=== PATIENT | female | born 1955 | race African-American/Black ===

== ENCOUNTER → 2016-11-25 | Outpatient (CLI) | payer MEDICARE ==
[2016-08-22 08:33] VITALS: BP 131/74
[~2016-11-25] MED LIST: ASPI-482 PO; CALC1TAB PO; DICY10CA53 PO; DOXY100T PO; FLUT9.9S NS; LEVO25TA2 PO; LORA10TA68 PO; LOSA25TA4 PO; METF-93 PO; MULT1TAB6 PO; MUPI15CR TP; NYST15CR2 TP; OMEP40CA5 PO; PRED20TA PO; PSYL0.527 PO; TRIA1CAP PO
--- NOTE | 2016-11-25 12:49 | RAD ---
DATE: 11/25/2016 EXAM: DIGITAL SCREEN BILAT W/CAD HISTORY: Routine screening COMPARISON: 11/20/2015 This study was interpreted with the benefit of Computerized Aided Detection (CAD). FINDINGS: The breasts are predominantly fatty replaced. No new or enlarging breast densities are seen. Minimal benign type calcification is present. No suspicious microcalcifications have developed. IMPRESSION: Stable mammograms without evidence of malignancy. BI-RADS CATEGORY: 2 BENIGN FINDING(S) RECOMMENDED FOLLOW-UP: 12M 12 MONTH FOLLOW-UP PQRS compliance statement: Patient information was entered into a reminder system with a target due date for the next mammogram. Mammography is a sensitive method for finding small breast cancers, but it does not detect them all and is not a substitute for careful clinical examination. A negative mammogram does not negate a clinically suspicious finding and should not result in delay in biopsying a clinically suspicious abnormality. "Our facility is accredited by the [employer] Mammography Program."
== END | disposition home or self-care (01) ==
LOC: MAMMO 10:49
PROVIDERS: ATTEND Internal Medicine
DX: Z12.31 Encounter for screening mammogram for malignant neoplasm of breast (principal)
CPT/HCPCS: G0202; 77067

== ENCOUNTER 2017-04-04 18:46 | Emergency (ER) | payer MEDICARE, MEDICAID ==
[~2017-04-04] VITALS: Ht 154.9 cm; Wt 76.7 kg
[~2017-04-04 18:46] MED LIST changes: -LEVO25TA2 PO; +LEVO25TA55 PO; +METF-153 PO; -METF-93 PO
[2017-04-04 19:15] LABS: BASO # 0.1 x10^3/uL (0.0-0.2); BASO % 1 % (0-3); EOS % 7 % (0-3); HEMATOCRIT 37.7 % (36.0-47.0); HEMOGLOBIN 12.2 g/dL (12.0-15.5); LYMPH # 1.7 x10^3/uL (1.0-4.8); LYMPH % 20 % (24-48); MEAN CORPUSCULAR HEMOGLOBIN 29 pg (25-35); MEAN CORPUSCULAR HGB CONC 32 g/dL (31-37); MEAN CORPUSCULAR VOLUME 88 fL (79-100); MONO % 6 % (0-9); NEUT % 66 % (31-73); PLATELET COUNT 250 x10^3/uL (140-400); RED BLOOD COUNT 4.29 x10^6/uL (3.50-5.40); RED CELL DISTRIBUTION WIDTH 13.1 % (11.5-14.5); WHITE BLOOD COUNT 8.5 x10^3/uL (4.0-11.0)
[2017-04-04 19:17] LABS: BILIRUBIN,URINE NEGATIVE (NEG); GLUCOSE,URINE NEGATIVE (NEG); NITRITE,URINE NEGATIVE (NEG); PROTEIN,URINE NEGATIVE (NEG-TRACE); UROBILINOGEN,URINE 0.2 mg/dL (0.2 mg/dL)
--- NOTE | 2017-04-04 19:21 | PHYS DOC ---
Past Medical History Past Medical History: Diabetes-Type II, Hypertension, Hyperthyroid Past Surgical History: Appendectomy Alcohol Use: None Drug Use: None Adult General Chief Complaint Chief Complaint: FLANK PAIN HPI HPI Patient is a 61 year old female who presents with abdominal pain. Patient reports three-day history of right-sided abdominal pain. Denies fevers or chills , nausea or vomiting, diarrhea or constipation, dysuria or hematuria. She has previous history of chronic abdominal pain for which she is supposed to have some type of GI or surgical procedure that she cannot describe. She states this pain is different and worse than usual. She has history of appendectomy. Her PCP is Dr. Ramesh. Review of Systems Review of Systems Constitutional: Denies fever or chills Eyes: Denies change in visual acuity HENT: Denies nasal congestion or sore throat Respiratory: Denies cough or shortness of breath Cardiovascular: Denies chest pain or edema GI: Reports abdominal pain, denies nausea, vomiting, bloody stools or diarrhea : Denies dysuria or hematuria Musculoskeletal: Denies back pain or joint pain Integument: Denies rash or skin lesions Neurologic: Denies headache, focal weakness or sensory changes Current Medications Current Medications Current Medications Medications (Trade) Dose Ordered Sig/Chidi Start Time Stop Time Status Last Admin Dose Admin Ceftriaxone Sodium 50 ml @ 100 mls/hr 1X ONCE 04/04/17 20:30 04/04/17 20:59 DC 04/04/17 20:17 100 MLS/HR Info (Do NOT chart on this entry -- for MONITORING) 1 each PRN DAILY PRN 04/04/17 20:00 04/06/17 19:59 Iohexol (Omnipaque 300 Mg/ml) 75 ml 1X ONCE 04/04/17 20:00 04/04/17 20:01 DC 04/04/17 20:01 75 ML Ondansetron HCl (Zofran) 4 mg 1X ONCE 04/04/17 19:30 04/04/17 19:31 DC 04/04/17 19:23 4 MG Sodium Chloride 500 ml @ 0 mls/hr 1X ONCE 04/04/17 19:30 04/04/17 19:31 DC 04/04/17 19:24 500 MLS/HR Allergies Allergies Allergies Coded Allergies Type Severity Reaction Last Updated Verified diphenhydramine Allergy Intermediate 08/19/16 Yes Physical Exam Physical Exam Constitutional: Well developed, well nourished, no acute distress, non-toxic appearance. HENT: Normocephalic, atraumatic, bilateral external ears normal, oropharynx moist, nose normal. Eyes: PERRLA, EOMI, conjunctiva normal, no discharge. Neck: supple, no stridor. Cardiovascular: RRR, no murmurs, no edema. Lungs & Thorax: LCTAB, no wheezing, no respiratory distress. Abdomen: soft, generalized right-sided abdominal pain without focal right upper or right lower quadrant tenderness, no rebound or guarding, no masses or pulsatile masses nondistended. Skin: Warm, dry, no erythema, no rash. Back: Very mild right CVA tenderness. Extremities: No tenderness, no edema. Neurologic: Alert and oriented X 3, no focal deficits noted. Psychologic: Affect normal, judgement normal, mood normal. Current Patient Data Vital Signs Vital Signs Date Time Temp Pulse Resp B/P (MAP) Pulse Ox O2 Delivery O2 Flow Rate FiO2 04/04/17 19:00 97.7 77 13 141/87 (105) 99 Room Air 97.7 Lab Values Laboratory Tests Test 04/04/17 17:05 04/04/17 18:55 04/04/17 19:25 Urine Collection Type Unknown Urine Color Yellow Urine Clarity Clear Urine pH 5.0 Urine Specific K[place]ron >=1.030 Urine Protein Negative mg/dL (NEG-TRACE) Urine Glucose (UA) Negative mg/dL (NEG) Urine Ketones (Stick) Negative mg/dL (NEG) Urine Blood Negative (NEG) Urine Nitrite Negative (NEG) Urine Bilirubin Negative (NEG) Urine Urobilinogen Dipstick 0.2 mg/dL (0.2 mg/dL) Urine Leukocyte Esterase Small (NEG) Urine RBC 0 /HPF (0-2) Urine WBC 11-20 /HPF (0-4) Urine Squamous Epithelial Cells Few /LPF Urine Bacteria 0 /HPF (0-FEW) Urine Mucus Mod /LPF White Blood Count 8.5 x10^3/uL (4.0-11.0) Red Blood Count 4.29 x10^6/uL (3.50-5.40) Hemoglobin 12.2 g/dL (12.0-15.5) Hematocrit 37.7 % (36.0-47.0) Mean Corpuscular Volume 88 fL (79-100) Mean Corpuscular Hemoglobin 29 pg (25-35) Mean Corpuscular Hemoglobin Concent 32 g/dL (31-37) Red Cell Distribution Width 13.1 % (11.5-14.5) Platelet Count 250 x10^3/uL (140-400) Neutrophils (%) (Auto) 66 % (31-73) Lymphocytes (%) (Auto) 20 % (24-48) L Monocytes (%) (Auto) 6 % (0-9) Eosinophils (%) (Auto) 7 % (0-3) H Basophils (%) (Auto) 1 % (0-3) Neutrophils # (Auto) 5.6 x10^3uL (1.8-7.7) Lymphocytes # (Auto) 1.7 x10^3/uL (1.0-4.8) Monocytes # (Auto) 0.5 x10^3/uL (0.0-1.1) Eosinophils # (Auto) 0.6 x10^3/uL (0.0-0.7) Basophils # (Auto) 0.1 x10^3/uL (0.0-0.2) Troponin I Quantitative < 0.017 ng/mL (0.000-0.055) Sodium Level 144 mmol/L (136-145) Potassium Level 4.0 mmol/L (3.5-5.1) Chloride Level 106 mmol/L (98-107) Carbon Dioxide Level 30 mmol/L (21-32) Anion Gap 8 (6-14) Blood Urea Nitrogen 17 mg/dL (7-20) Creatinine 0.7 mg/dL (0.6-1.0) Estimated GFR (Cockcroft-Gault) 103.3 BUN/Creatinine Ratio 24 (6-20) H Glucose Level 100 mg/dL (70-99) H Calcium Level 8.6 mg/dL (8.5-10.1) Total Bilirubin 0.1 mg/dL (0.2-1.0) L Aspartate Amino Transferase (AST) 18 U/L (15-37) Alanine Aminotransferase (ALT) 25 U/L (14-59) Alkaline Phosphatase 84 U/L (46-116) Total Protein 6.6 g/dL (6.4-8.2) Albumin 3.3 g/dL (3.4-5.0) L Albumin/Globulin Ratio 1.0 (1.0-1.7) Lipase 52 U/L (73-393) L Laboratory Tests 04/04/17 18:55 Laboratory Tests 04/04/17 19:25 EKG EKG Interpreted by me: Normal sinus rhythm rate 77, no acute ST or T wave changes, normal intervals, no ectopy. [] Radiology/Procedures Radiology/Procedures PROCEDURE: CT ABD PELV W/ IV CONTRST ONLY CT abdomen and pelvis with contrast History: Right-sided abdominal pain for one week Technique: After the administration of intravenous contrast, CT imaging was performed of the abdomen and pelvis. No oral contrast was given as per request. Multiplanar images are reviewed. Exposure: One or more of the following individualized dose reduction techniques were utilized for this examination: 1. Automated exposure control 2. Adjustment of the mA and/or kV according to patient size 3. Use of iterative reconstruction technique. Contrast: 75 cc Omnipaque 300 Comparison: January 27, 2011 Findings: There is some small calcified granulomas near the lung bases. There is no significant abnormality of the liver, spleen, pancreas, adrenal glands. There is now small focus of nonspecific calcification of the distal pancreas. Both kidneys enhance without hydronephrosis. Gallbladder is present without obvious intraluminal abnormality by CT. Accurate evaluation of bowel is limited without oral contrast. There is no significant inflammatory change adjacent to the bowel. There is no evidence of bowel obstruction, free fluid, or free air. Mild hazy density of the left mesenteric and omental fat is stable. Reportedly there has been appendectomy. There is variable retained stool greatest of the right colon and the rectosigmoid colon. The bladder has a normal configuration. There is multilevel lumbar degenerative disc disease and spondylosis as well as facet degenerative change. Impression: 1. No significant acute abnormality is identified. There is retained stool greatest of the rectosigmoid colon and the right colon. Electronically signed by: Lexx Contreras MD (04/04/2017 8:21 PM) [facility] DICTATED and SIGNED BY: LEXX CONTRERAS MD DATE: 04/04/172015[] Course & Med Decision Making Course & Med Decision Making Pertinent Labs and Imaging studies reviewed. (See chart for details) The patient presents with abdominal pain. Vitals stable, no focal pain on exam. Obtained labs and CT. Found to have mild UTI and constipation on CT, otherwise no serious findings. She felt better after treatment here. Gave Rocephin and discharged with prescription for Cipro. Also provided a prescription for MiraLAX. Recommend rest, by mouth hydration, advance diet as tolerated, increase fluid and fiber in diet. Follow-up with primary care physician in 2-3 days. Return to the emergency department for high fever, severe pain, uncontrolled vomiting, any otherwise worsening condition. Discharged home in stable and improved condition. [] Dragon Disclaimer Dragon Disclaimer This electronic medical record was generated, in whole or in part, using a voice recognition dictation system. Departure Departure Impression: Primary Impression: Abdominal pain Additional Impressions: Urinary tract infection Constipation Disposition: HOME, SELF-CARE Condition: STABLE Referrals: ADIN RAMESH MD (PCP) Patient Instructions: Constipation, Adult, Vyud-[id number], Urinary Tract Infection, [id number] Additional Instructions: You were seen in the emergency department today for abdominal pain. No serious cause of symptoms was identified. You have a bladder infection and constipation on the CT scan. Please take MiraLAX to promote passage of stools. Take Cipro for urinary tract infection. Follow-up with primary care physician in 2-3 days. Return to the emergency department for high fever, severe pain, uncontrolled vomiting, any otherwise worsening condition. Scripts Polyethylene Glycol 3350 (MIRALAX) 17 Gm Powd.pack 1 PACKET PO DAILY Y for CONSTIPATION, #2 PACKET Prov: JOHAN HENDRIX MD 04/04/17 Ciprofloxacin Hcl (CIPRO) 500 Mg Tablet 1 TAB PO BID, #10 TAB Prov: JOHAN HENDRIX MD 04/04/17 Problem Qualifiers JOHAN HENDRIX MD Apr 04, 2017 19:21
[2017-04-04 19:26] LABS: BACTERIA,URINE 0 /HPF (0-FEW); RBC,URINE 0 /HPF (0-2); SQUAMOUS EPITHELIAL CELL,UR FEW /LPF
[2017-04-04] MEDS ORDERED: IV NORMAL SALINE 500ML BAG 500 ML IV ONE (19:30)
[2017-04-04] MEDS ORDERED: ONDANSETRON PF 4 MG/2 ML VIAL. IV ONE (19:30)
[2017-04-04] MEDS ORDERED: IOHEXOL 300 MG/ML 75 ML VIAL IV ONE ×2 (19:45→20:00)
[2017-04-04 19:47] LABS: CALCIUM 8.6 mg/dL (8.5-10.1); CREATININE 0.7 mg/dL (0.6-1.0); GFR 103.3
[2017-04-04 19:53] LABS: ALBUMIN 3.3 g/dL (3.4-5.0); TOTAL BILIRUBIN 0.1 mg/dL (0.2-1.0); TOTAL PROTEIN 6.6 g/dL (6.4-8.2)
[2017-04-04] MEDS ORDERED: CONTRAST GIVEN MC PRN (20:00)
--- NOTE | 2017-04-04 20:24 | RAD ---
CT abdomen and pelvis with contrast History: Right-sided abdominal pain for one week Technique: After the administration of intravenous contrast, CT imaging was performed of the abdomen and pelvis. No oral contrast was given as per request. Multiplanar images are reviewed. Exposure: One or more of the following individualized dose reduction techniques were utilized for this examination: 1. Automated exposure control 2. Adjustment of the mA and/or kV according to patient size 3. Use of iterative reconstruction technique. Contrast: 75 cc Omnipaque 300 Comparison: January 27, 2011 Findings: There is some small calcified granulomas near the lung bases. There is no significant abnormality of the liver, spleen, pancreas, adrenal glands. There is now small focus of nonspecific calcification of the distal pancreas. Both kidneys enhance without hydronephrosis. Gallbladder is present without obvious intraluminal abnormality by CT. Accurate evaluation of bowel is limited without oral contrast. There is no significant inflammatory change adjacent to the bowel. There is no evidence of bowel obstruction, free fluid, or free air. Mild hazy density of the left mesenteric and omental fat is stable. Reportedly there has been appendectomy. There is variable retained stool greatest of the right colon and the rectosigmoid colon. The bladder has a normal configuration. There is multilevel lumbar degenerative disc disease and spondylosis as well as facet degenerative change. Impression: 1. No significant acute abnormality is identified. There is retained stool greatest of the rectosigmoid colon and the right colon. Electronically signed by: Miguel Sutton MD (04/04/2017 8:21 PM) [facility]
[2017-04-04] MEDS ORDERED: POLY17PO29 PO (21:15)
[2017-04-04] MEDS ORDERED: CIPR500T94 PO (21:15)
[2017-04-04 21:22] VITALS: BP 120/71
--- NOTE | 2017-04-05 08:48 | EKG ---
[facility] [address] [place] [address] Test Date: 2017-04-04 Test Time: 19:16:19 Pat Name: SHANON SANCHEZ Department: Room: Gender: F [employer] Super[employer]: : 1955 Requested By: JOHAN HENDRIX Order Number: [id number] Reading MD: Reinaldo Santiago Measurements Intervals [place] Rate: 77 P: 33 CT: 176 QRS: -2 QRSD: 80 T: 32 QT: 380 QTc: 432 Interpretive Statements SINUS RHYTHM LEFTWARD AXIS LOW LIMB LEAD VOLTAGE NO SPECIFIC ECG ABNORMALITIES RI6.01 Compared to ECG 08/19/2016 21:06:26 Left-axis deviation now present Electronically Signed On 04-05-2017 11:21:19 CDT by Reinaldo Santiago
[2017-04-10] MEDS ORDERED: MOME13HF IH (14:35)
[2017-04-10] MEDS ORDERED: CETI10TA22 PO (14:37)
[2017-04-10] MEDS ORDERED: TRIA1CAP PO (14:37)
[2017-04-10] MEDS ORDERED: VENTOLIN HFA18 GM INH (14:37)
[2017-04-10] MEDS ORDERED: METF-153 PO (14:37)
== END 2017-04-04 21:28 | disposition home or self-care (01) ==
LOC: ER 18:46
DX: N39.0 Urinary tract infection, site not specified (principal); K59.00 Constipation, unspecified; G89.29 Other chronic pain; I10 Essential (primary) hypertension; E11.9 Type 2 diabetes mellitus without complications; E05.90 Thyrotoxicosis, unspecified without thyrotoxic crisis or storm; Z90.49 Acquired absence of other specified parts of digestive tract; Z88.8 Allergy status to other drugs, medicaments and biological substances
CPT/HCPCS: 36415; 74177; 80053; 81001; 83690; 84484; 85027; 87086; 93005; 96361; 96365; 96375; 99285; J0690; J2405; J7040; Q9967

== ENCOUNTER → 2017-04-11 | Day surgery (SDC) | payer MEDICARE, MEDICAID ==
[~2017-04-11] MED LIST changes: +CETI10TA22 PO; +CIPR500T94 PO; +HYDROmorphone 2 MG/ML VIAL IV PRN; +IV RINGERS,LACTATED 1000ML 1,000 ML IV SCH; +LIDOCAINE 1% 1 ML SYRINGE. ID PRN; +MOME13HF IH; +MORPHINE SULFATE 2 MG/ML DISP.SYRIN. IV PRN; +ONDANSETRON PF 4 MG/2 ML VIAL. IV PRN; +POLY17PO29 PO; +PROCHLORPERAZINE 10 MG/2 ML VIAL. IV PRN; +PROPOFOL 20 ML IV ONE; +PROPOFOL 40 ML IV ONE; +VENTOLIN HFA18 GM INH; +fentaNYL PF VIAL 100 MCG/2 ML VIAL IV PRN
--- NOTE | 2017-04-11 09:16 | PDOC1 ---
HISTORY & PHYSICAL H&P La Higgins [id number] 1955 02/08/2017 01:50 PM 09/04 MAZAMA Docitt [facility], [facility] OUR PATIENTS COME FIRST [address] [place] [address] Ph. [phone] Patient: La Higgins Date of : 1955 Date: 02/08/2017 1:50 PM Visit Type: Consult This 61 year old female presents for Constipation, h/o colon polyp and Abdominal pain. History of Present Illness: 1. Constipation The patient describes it as difficulty passing, hard, ribbon like and scybalous. It occurs constantly. Denies aggravating symptoms. Denies relieving factors. Pertinent negatives include abdominal pain, black tarry stools, bloating, nausea, vomiting and weight loss. 2. h/o colon polyp Risk Factors: h/o colon polyp. Pertinent negatives include abdominal pain, nausea, vomiting and weight loss. Additional information: Last colonoscopy . H/O colon polyp. 3. Abdominal pain Location is epigastric, midline. The patient describes it as aching, bloating and sharp. Context: no pattern noted. Denies aggravating factors. Denies relieving factors. INTAKE COMMENTS: Intake Comments: Nurse Note: the pt is here today with complaints of abd pain, the pt states that the pain is all over her abd and she is having some issues with constipation. PROBLEM LIST: Problem Description Onset Date Acute bacterial sinusitis 10/09/2015 Controlled diabetes mellitus 11/10/2015 Type 2 DM uncontrolled 03/17/2014 Medical examinations/reports status 06/12/2009 DM w/o complication type II 12/22/2014 Gastroesophageal reflux disease 06/12/2009 Chronic paranoid schizophrenia 06/12/2009 Benign essential hypertension 12/16/2010 Hyperlipidemia 12/16/2010 Acquired hypothyroidism 12/16/2010 Anxiety state 12/16/2010 Sleep apnea 03/15/2012 Comprehensive diabetic foot examination, type 2 DM, encounter for 06/06/2016 PAST MEDICAL/SURGICAL HISTORY (Detailed) Disease/disorder Onset Date Management Date Comments asthma Arthrocentesis of the left knee joint borderline diabetes 2009 Depression Diabetes Extreme degree of tortuosity and extrinsic adhesions of colon 08/09/2012 Hyperlipidemia Limited diverticula 08/09/2012 colonoscopy 08/09/2012 schizophrenia medications DIAGNOSTICS HISTORY: Test Ordered Interpretation Result completed CT ABDOMEN W/O & W/DYE 01/27/2011 Abnormal Imp: No acute intra-abdominal or pelvic process detected. 01/27/2011 CT PELVIS W/O & W/DYE 01/27/2011 Normal Imp: No acute intra-abdominal or pelvic process detected. 01/27/2011 COLONOSCOPY AND BIOPSY 07/31/2012 Imp: Limited diverticula. Extreme degree of tortuosity and extrinsic lesions. 08/09/2012 Test Ordered Ordering Comments Modifier CT ABDOMEN W/O & W/DYE 01/27/[address] PELVIS W/O & W/DYE 01/27/2011 Gastroenterology COLONOSCOPY AND BIOPSY 07/31/2012 Medications (Active): Started Medication Directions Instruction Stopped 09/16/2016 Aspir-81 81 mg tablet,delayed release take 1 tablet (81MG) by oral route every day 09/11/2015 Bactroban 2 % topical ointment apply by topical route 3 times every day a small amount to the affected area 06/06/2016 Bentyl 10 mg capsule take 1 capsule (10MG) by oral route 3 times every day 01/06/2017 Caltrate with Vitamin D3 600 mg (1,500 mg)-800 unit tablet 1 po bid 01/06/2017 Centrum Complete 18 mg-400 mcg tablet take 1 tablet by oral route every day with food 09/16/2016 Claritin 10 mg tablet take 1 tablet by oral route every day 10/12/2016 Dulera 200 mcg-5 mcg/actuation HFA aerosol inhaler inhale 2 puff by inhalation route 2 times every day in the morning and evening samples given 01/11/2017 Dyazide 37.5 mg-25 mg capsule take 1 capsule by oral route every day 01/06/2017 Fiber (psyllium husk) 0.52 gram capsule Take one capsule daily. 01/06/2017 Flonase 50 mcg/actuation nasal spray,suspension spray 1 spray by intranasal route 2 times every day in each nostril 02/02/2017 Fortamet 500 mg tablet,extended release take 1 tablet (500MG) by oral route every day with the evening meal 01/11/2017 losartan 25 mg tablet take 1 tablet (25MG) by oral route every day 02/09/2016 nystatin-triamcinolone 100,000 unit/g-0.1 % topical cream apply by topical route 2 times every day to the affected area(s) 08/23/2016 omeprazole 40 mg capsule,delayed release take 1 capsule (40MG) by oral route every day before a meal 02/02/2017 Synthroid 25 mcg tablet take 1 tablet (25MCG) by oral route every day 08/23/2016 Ventolin HFA 90 mcg/actuation aerosol inhaler inhale 2 puff by inhalation route every 4 hours as needed 01/06/2017 Zyrtec-D 5 mg-120 mg tablet,extended release take 1 tablet by oral route every day Allergies: Ingredient Reaction Medication Name Comment DIPHENHYDRAMINE HCL Benadryl REVIEW OF SYSTEMS System Neg/Pos Details Constitutional Negative Chills, fever and malaise. ENMT Negative Sore throat. Eyes Negative Double vision. Respiratory Negative Dyspnea and wheezing. Cardio Negative Chest pain and irregular heartbeat/palpitations. GI Positive See HPI. GI Negative See HPI. Negative Dysuria and hematuria. Endocrine Negative Cold intolerance and heat intolerance. Psych Negative Anxiety. Integumentary Negative Hives and rash. MS Negative Joint pain. Ramon/Lymph Negative Easy bleeding and easy bruising. Allergic/Immuno Negative Animals at home and food allergies. VITAL SIGNS Time BP mm/Hg Pulse /min Resp /min Temp F Ht ft Ht in Ht cm Wt lb Wt kg BMI kg/ m2 BSA m2 O2 Sat% 2:07 PM 128/78 88 98.1 5.0 0.00 152.40 164.00 74.389 32.03 98 Time Measured [facility] 2:07 [facility] PH[facility]AM: Exam Findings Details Constitutional Normal Well developed. Eyes Normal Conjunctiva - Right: Normal, Left: Normal. Sclera - Right: Normal, Left: Normal. Nasopharynx Normal Lips/teeth/gums - Normal. Neck Exam Normal Inspection - Normal. Thyroid gland - Normal. Respiratory Normal Inspection - Normal. Auscultation - Normal. Cardiovascular Normal Regular rate and rhythm. No murmurs, gallops, or rubs. Vascular Normal Pulses - Carotids: Normal, Femoral: Normal, Dorsalis pedis: Normal. Abdomen Normal Inspection - Normal. Anterior palpation - No guarding. No abdominal tenderness. No hepatic enlargement. No splenic enlargement. No hernia. No Ascites. Skin Normal Inspection - Normal. Extremity Normal No edema. Psychiatric Normal Oriented to time, place, person, and situation. Appropriate mood and effect. Assessment/Plan # Detail Type Description 1. Assessment Pain of upper abdomen (R10.10). Patient Plan schedule EGD at Plan Orders Further diagnostic evaluations ordered today include(s) EGD to be performed today. 2. Assessment History of colon polyps (Z86.010). Patient Plan schedule colonoscopy at Plan Orders Further diagnostic evaluations ordered today include(s) Colonoscopy to be performed today. She is to schedule a follow-up visit with Alistair Cintron MD upon completion of work-up Electronically signed by: Alistair Cintron MD 02/08/2017 04:15 PM Document generated by: Alistair Cintron 02/08/2017 04:15 PM Bryan Galloway MD, Family Practice; Sami Pal MD Internal Medicine; Aaron Reyes MD, Internal Medicine; Henry Cintron MD Internal Medicine; Alistair Cintron MD, Gastroenterology; Saran Lu MD, Rheumatology, S. Solomon Luevano, Physical Medicine/Rehab JSteve Dobson APRN ------ 04/11/17 patient seen and examined. No change in H&P. ALISTAIR CINTRON MD Apr 11, 2017 09:16
[2017-04-11 10:26] VITALS: BP 132/79
--- NOTE | 2017-04-12 12:42 | PATHOLOGY ---
PATHOLOGY REPORT * * * * * * * * FINAL DIAGNOSIS: Colon biopsies, ascending colon polyp: - Tubular adenoma. COMMENT: There is no high grade dysplasia or evidence of malignancy. (JPM:pit; 04/12/2017) REPORT ELECTRONICALLY SIGNED BY: Grabiel Reaves M.D. DATE/TIME: 04/12/2017 12:42 * * * * * * * * GROSS PATHOLOGY: Received in formalin labeled "Shanon Higgins, ascending colon polyp biopsy," are two segments of tabares soft tissue measuring 0.2 and 0.3 cm in maximum dimension. The specimen is submitted entirely in cassette A1. (JPM; 04/11/17) INITIAL CPT CODE(S): A; 80824 Professional services performed by [facility] [place] [address] Technical services performed by [facility] at [address] [place] [address], [facility] [address] [address]. SPECIMEN(S) RECEIVED: A.Ascending colon polyp biopsy CLINICAL HISTORY: History of polyp, abdominal pain PATIENT: SHANON HIGGINS Ania /AGE: 1 1955 (Age: 61) PATIENT #: [id number] ALT CASE #: SPECIMEN COLLECTION DATE: 04/11/2017 SPECIMEN RECEIVED DATE: 04/11/2017 [facility] - [address] [place] [address] - PHONE: [phone] * * * END OF REPORT * * *
== END | disposition home or self-care (01) ==
LOC: SURG 08:03
PROVIDERS: ATTEND Internal Medicine Gastroenterology
DX: Z87.19 Personal history of other diseases of the digestive system (principal); D12.2 Benign neoplasm of ascending colon; E78.00 Pure hypercholesterolemia, unspecified; I10 Essential (primary) hypertension; J45.909 Unspecified asthma, uncomplicated; M19.90 Unspecified osteoarthritis, unspecified site; E03.9 Hypothyroidism, unspecified; F41.9 Anxiety disorder, unspecified; F32.9 Major depressive disorder, single episode, unspecified; Z88.8 Allergy status to other drugs, medicaments and biological substances; Z86.39 Personal history of other endocrine, nutritional and metabolic disease
CPT/HCPCS: 43235; 45380; J2704

== ENCOUNTER 2017-05-19 12:42 | Emergency (ER) | payer MEDICARE, MEDICAID ==
[~2017-05-19] VITALS: Ht 154.9 cm; Wt 72.1 kg
[~2017-05-19 12:42] MED LIST changes: -HYDROmorphone 2 MG/ML VIAL IV PRN; -IV RINGERS,LACTATED 1000ML 1,000 ML IV SCH; -LIDOCAINE 1% 1 ML SYRINGE. ID PRN; -MORPHINE SULFATE 2 MG/ML DISP.SYRIN. IV PRN; -ONDANSETRON PF 4 MG/2 ML VIAL. IV PRN; -PROCHLORPERAZINE 10 MG/2 ML VIAL. IV PRN; -PROPOFOL 20 ML IV ONE; -PROPOFOL 40 ML IV ONE; -fentaNYL PF VIAL 100 MCG/2 ML VIAL IV PRN
--- NOTE | 2017-05-19 13:07 | PHYS DOC ---
Past Medical History Past Medical History: Diabetes-Type II, Hypertension, Hyperthyroid Past Surgical History: Appendectomy Alcohol Use: None Drug Use: None Adult General Chief Complaint Chief Complaint: PSYCH EVALUATION HPI HPI Patient is a 61 year old -Maltese female who presents with needing a place to stay. According to her manager rn case she got into a verbal argument with another tenant at their senior care/facility she staying in and the [employer] officers were called and they asked her to leave the premises and not return. Patient denies any physical confrontation she denies nausea vomiting abdominal pain or any other medical conditions at this time. The marketing community liaison is requesting to see if she needs any other medications and find her new place to stay. Patient denies any dysuria, fevers chills nausea or vomiting. Review of Systems Review of Systems Constitutional: Denies fever or chills [] Eyes: Denies change in visual acuity, redness, or eye pain [] HENT: Denies nasal congestion or sore throat [] Respiratory: Denies cough or shortness of breath [] Cardiovascular: No additional information not addressed in HPI [] GI: Denies abdominal pain, nausea, vomiting, bloody stools or diarrhea [] : Denies dysuria or hematuria [] Musculoskeletal: Denies back pain or joint pain [] Integument: Denies rash or skin lesions [] Neurologic: Denies headache, focal weakness or sensory changes [] Endocrine: Denies polyuria or polydipsia [] Allergies Allergies Allergies Coded Allergies Type Severity Reaction Last Updated Verified diphenhydramine Allergy Intermediate 04/11/17 Yes Physical Exam Physical Exam Constitutional: Well developed, well nourished, no acute distress, non-toxic appearance. [] HENT: Normocephalic, atraumatic, bilateral external ears normal, oropharynx moist, no oral exudates, nose normal. [] Eyes: PERRLA, EOMI, conjunctiva normal, no discharge. [] Neck: Normal range of motion, no tenderness, supple, no stridor. [] Cardiovascular:Heart rate regular rhythm, no murmur [] Lungs & Thorax: Bilateral breath sounds clear to auscultation [] Abdomen: Bowel sounds normal, soft, no tenderness, no masses, no pulsatile masses. [] Skin: Warm, dry, no erythema, no rash. [] Back: No tenderness, no CVA tenderness. [] Extremities: No tenderness, no cyanosis, no clubbing, ROM intact, no edema. [] Neurologic: Alert and oriented X 3, normal motor function, normal sensory function, no focal deficits noted. [] Psychologic: Affect normal, judgement normal, mood normal. [] Current Patient Data Vital Signs Vital Signs Date Time Temp Pulse Resp B/P (MAP) Pulse Ox O2 Delivery O2 Flow Rate FiO2 05/19/17 15:03 98 19 112/76 (88) 99 Room Air 05/19/17 13:09 98.2 98.2 Lab Values Laboratory Tests Test 05/19/17 12:55 05/19/17 14:05 Urine Collection Type Unknown Urine Color Yellow Urine Clarity Clear Urine pH 7.0 Urine Specific [place] 1.015 Urine Protein Negative mg/dL (NEG-TRACE) Urine Glucose (UA) Negative mg/dL (NEG) Urine Ketones (Stick) Negative mg/dL (NEG) Urine Blood Negative (NEG) Urine Nitrite Negative (NEG) Urine Bilirubin Negative (NEG) Urine Urobilinogen Dipstick 0.2 mg/dL (0.2 mg/dL) Urine Leukocyte Esterase Small (NEG) Urine RBC 0 /HPF (0-2) Urine WBC 11-20 /HPF (0-4) Urine Squamous Epithelial Cells Few /LPF Urine Bacteria 0 /HPF (0-FEW) Urine Hyaline Casts Few /HPF Urine Mucus Slight /LPF White Blood Count 10.2 x10^3/uL (4.0-11.0) Red Blood Count 4.76 x10^6/uL (3.50-5.40) Hemoglobin 13.6 g/dL (12.0-15.5) Hematocrit 41.3 % (36.0-47.0) Mean Corpuscular Volume 87 fL (79-100) Mean Corpuscular Hemoglobin 29 pg (25-35) Mean Corpuscular Hemoglobin Concent 33 g/dL (31-37) Red Cell Distribution Width 12.9 % (11.5-14.5) Platelet Count 348 x10^3/uL (140-400) Neutrophils (%) (Auto) 72 % (31-73) Lymphocytes (%) (Auto) 16 % (24-48) L Monocytes (%) (Auto) 6 % (0-9) Eosinophils (%) (Auto) 5 % (0-3) H Basophils (%) (Auto) 1 % (0-3) Neutrophils # (Auto) 7.4 x10^3uL (1.8-7.7) Lymphocytes # (Auto) 1.6 x10^3/uL (1.0-4.8) Monocytes # (Auto) 0.6 x10^3/uL (0.0-1.1) Eosinophils # (Auto) 0.5 x10^3/uL (0.0-0.7) Basophils # (Auto) 0.1 x10^3/uL (0.0-0.2) Sodium Level 136 mmol/L (136-145) Potassium Level 4.2 mmol/L (3.5-5.1) Chloride Level 102 mmol/L (98-107) Carbon Dioxide Level 28 mmol/L (21-32) Anion Gap 6 (6-14) Blood Urea Nitrogen 27 mg/dL (7-20) H Creatinine 1.0 mg/dL (0.6-1.0) Estimated GFR (Cockcroft-Gault) 68.4 Glucose Level 122 mg/dL (70-99) H Calcium Level 9.9 mg/dL (8.5-10.1) Laboratory Tests 05/19/17 14:05 Laboratory Tests 05/19/17 14:05 EKG EKG [] Radiology/Procedures Radiology/Procedures [] Impressions: Homeless Course & Med Decision Making Course & Med Decision Making Pertinent Labs and Imaging studies reviewed. (See chart for details) Patient's vitals are within normal limits and she is resting in bed and her heart rate was 96. She denies any dysuria or other symptoms. She's been offered [place] home but refuses to go there. Her caseworkers at bedside trying to make other arrangements. Patient's being checked out to Dr. Nelson for final disposition. Dragon Disclaimer Dragon Disclaimer This electronic medical record was generated, in whole or in part, using a voice recognition dictation system. Departure Departure Referrals: ADIN RAMESH MD (PCP) EDMUND BARRAZA MD May 19, 2017 13:07
[2017-05-19 14:08] LABS: BILIRUBIN,URINE NEGATIVE (NEG); GLUCOSE,URINE NEGATIVE (NEG); NITRITE,URINE NEGATIVE (NEG); PROTEIN,URINE NEGATIVE (NEG-TRACE); UROBILINOGEN,URINE 0.2 mg/dL (0.2 mg/dL)
[2017-05-19 14:17] LABS: BASO # 0.1 x10^3/uL (0.0-0.2); BASO % 1 % (0-3); EOS % 5 % (0-3); HEMATOCRIT 41.3 % (36.0-47.0); HEMOGLOBIN 13.6 g/dL (12.0-15.5); LYMPH # 1.6 x10^3/uL (1.0-4.8); LYMPH % 16 % (24-48); MEAN CORPUSCULAR HEMOGLOBIN 29 pg (25-35); MEAN CORPUSCULAR HGB CONC 33 g/dL (31-37); MEAN CORPUSCULAR VOLUME 87 fL (79-100); MONO % 6 % (0-9); NEUT % 72 % (31-73); PLATELET COUNT 348 x10^3/uL (140-400); RED BLOOD COUNT 4.76 x10^6/uL (3.50-5.40); RED CELL DISTRIBUTION WIDTH 12.9 % (11.5-14.5); WHITE BLOOD COUNT 10.2 x10^3/uL (4.0-11.0)
[2017-05-19 14:24] LABS: BACTERIA,URINE 0 /HPF (0-FEW); RBC,URINE 0 /HPF (0-2); SQUAMOUS EPITHELIAL CELL,UR FEW /LPF
[2017-05-19 14:41] LABS: CALCIUM 9.9 mg/dL (8.5-10.1); GFR 68.4; POTASSIUM 4.2 mmol/L (3.5-5.1)
[2017-05-19 15:03] VITALS: BP 112/76
== END 2017-05-19 15:44 | disposition home or self-care (01) ==
LOC: ER 12:42
DX: Z59.0 Homelessness (principal); I10 Essential (primary) hypertension; E11.9 Type 2 diabetes mellitus without complications; E05.90 Thyrotoxicosis, unspecified without thyrotoxic crisis or storm; Z88.8 Allergy status to other drugs, medicaments and biological substances
CPT/HCPCS: 36415; 80048; 81001; 85025; 87086; 99284

== ENCOUNTER → 2017-12-05 | Outpatient (CLI) | payer MEDICARE, MEDICAID | END | disposition home or self-care (01) | LOC: MAMMO 13:41 | DX: Z12.31 Encounter for screening mammogram for malignant neoplasm of breast (principal) | CPT/HCPCS: 77067 ==

== ENCOUNTER 2018-11-27 17:56 | Emergency (ER) | payer MEDICARE, MEDICAID ==
[~2018-11-27] VITALS: Ht 162.6 cm; Wt 72.6 kg
[~2018-11-27 17:56] MED LIST changes: -LOSA25TA4 PO; +LOSA25TA54 PO
[2018-11-27] MEDS ORDERED: methylPREDNISolone SOD SUCC PF 125 MG/2 ML VIAL. IV ONE (18:45)
[2018-11-27] MEDS ORDERED: IPRATRPIUM/ALBUTEROL 0.5/2.5MG 3 ML NEBU. NEB ONE (18:45)
[2018-11-27 19:24] LABS: BASO # 0.1 x10^3/uL (0.0-0.2); BASO % 1 % (0-3); EOS # 1.1 x10^3/uL (0.0-0.7); EOS % 14 % (0-3); HEMATOCRIT 32.8 % (36.0-47.0); HEMOGLOBIN 10.8 g/dL (12.0-15.5); LYMPH # 1.7 x10^3/uL (1.0-4.8); LYMPH % 22 % (24-48); MEAN CORPUSCULAR HEMOGLOBIN 29 pg (25-35); MEAN CORPUSCULAR HGB CONC 33 g/dL (31-37); MEAN CORPUSCULAR VOLUME 89 fL (79-100); MONO # 0.4 x10^3/uL (0.0-1.1); MONO % 6 % (0-9); NEUT # 4.5 x10^3uL (1.8-7.7); NEUT % 58 % (31-73); PLATELET COUNT 204 x10^3/uL (140-400); RED CELL DISTRIBUTION WIDTH 13.4 % (11.5-14.5); WHITE BLOOD COUNT 7.7 x10^3/uL (4.0-11.0)
--- NOTE | 2018-11-27 19:29 | PHYS DOC ---
Past Medical History Past Medical History: Asthma, Diabetes-Type II, Hypertension, Hyperthyroid, Hypothyroid, IBS, Other Additional Past Medical Histor: MENTAL HEALTH ISSUES (MAC LA APRN) Past Surgical History: Appendectomy (MAC LA APRN) Alcohol Use: None Drug Use: None (MAC LA APRN) Adult General Chief Complaint Chief Complaint: ASTHMA HPI HPI Patient is a 63 year old female with history of asthma, hypertension, hypothyroidism, who presents to the ED today complaining of wheezing that began this afternoon. Patient states she was not given a breathing treatment in the prison but the prison reports patient refused. Patient denies any fever. She states she was admitted last month for similar complaints at a different facility. (MAC LA APRN) Review of Systems Review of Systems Constitutional: Denies fever or chills [] Eyes: Denies change in visual acuity, redness, or eye pain [] HENT: Denies nasal congestion or sore throat [] Respiratory: Reports wheezing. Denies cough or shortness of breath [] Cardiovascular: No additional information not addressed in HPI [] GI: Denies abdominal pain, nausea, vomiting, bloody stools or diarrhea [] : Denies dysuria or hematuria [] Musculoskeletal: Denies back pain or joint pain [] Integument: Denies rash or skin lesions [] Neurologic: Denies headache, focal weakness or sensory changes [] All other systems were reviewed and found to be within normal limits, except as documented in this note. (MAC LA APRN) Current Medications Current Medications Current Medications Medications (Trade) Dose Ordered Sig/Chidi Start Time Stop Time Status Last Admin Dose Admin Albuterol/ Ipratropium (Duoneb) 3 ml 1X ONCE 11/27/18 18:45 11/27/18 18:46 DC 11/27/18 18:44 3 ML Methylprednisolone Sodium Succinate (SOLU-Medrol 125MG VIAL) 125 mg 1X ONCE 11/27/18 18:45 11/27/18 18:46 DC 11/27/18 19:39 125 MG (MESERET ARTHUR DO) Allergies Allergies Allergies Coded Allergies Type Severity Reaction Last Updated Verified diphenhydramine Allergy Intermediate 04/11/17 Yes (MESERET ARTHUR DO) Physical Exam Physical Exam Constitutional: Well developed, well nourished, no acute distress, non-toxic appearance. [] HENT: Normocephalic, atraumatic, bilateral external ears normal, oropharynx moist, no oral exudates, nose normal. [] Eyes: PERRLA, EOMI, conjunctiva normal, no discharge. [] Neck: Normal range of motion, no tenderness, supple, no stridor. [] Cardiovascular:Heart rate regular rhythm, no murmur [] Lungs & Thorax: Diffuse wheezing throughout the lung bases. Abdomen: Bowel sounds normal, soft, no tenderness, no masses, no pulsatile masses. [] Skin: Warm, dry, no erythema, no rash. [] Back: No tenderness, no CVA tenderness. [] Extremities: No tenderness, no cyanosis, no clubbing, ROM intact, no edema. [] Neurologic: Alert and oriented X 3, normal motor function, normal sensory function, no focal deficits noted. [] Psychologic: Affect normal, judgement normal, mood normal. [] (MAC LA APRN) Current Patient Data Vital Signs Vital Signs Date Time Temp Pulse Resp B/P (MAP) Pulse Ox O2 Delivery O2 Flow Rate FiO2 11/27/18 20:30 80 145/90 (108) 98 Room Air 11/27/18 19:40 19 11/27/18 18:13 97.8 97.8 (MESERET ARTHUR DO) Lab Values Laboratory Tests Test 11/27/18 19:05 11/27/18 19:15 Urine Collection Type Unknown Urine Color Yellow Urine Clarity Clear Urine pH 5.5 Urine Specific [place] 1.020 Urine Protein Negative mg/dL (NEG-TRACE) Urine Glucose (UA) Negative mg/dL (NEG) Urine Ketones (Stick) Trace mg/dL (NEG) Urine Blood Negative (NEG) Urine Nitrite Negative (NEG) Urine Bilirubin Negative (NEG) Urine Urobilinogen Dipstick 0.2 mg/dL (0.2 mg/dL) Urine Leukocyte Esterase Moderate (NEG) Urine RBC 0 /HPF (0-2) Urine WBC 11-20 /HPF (0-4) Urine Squamous Epithelial Cells Few /LPF Urine Bacteria Few /HPF (0-FEW) White Blood Count 7.7 x10^3/uL (4.0-11.0) Red Blood Count 3.70 x10^6/uL (3.50-5.40) Hemoglobin 10.8 g/dL (12.0-15.5) L Hematocrit 32.8 % (36.0-47.0) L Mean Corpuscular Volume 89 fL (79-100) Mean Corpuscular Hemoglobin 29 pg (25-35) Mean Corpuscular Hemoglobin Concent 33 g/dL (31-37) Red Cell Distribution Width 13.4 % (11.5-14.5) Platelet Count 204 x10^3/uL (140-400) Neutrophils (%) (Auto) 58 % (31-73) Lymphocytes (%) (Auto) 22 % (24-48) L Monocytes (%) (Auto) 6 % (0-9) Eosinophils (%) (Auto) 14 % (0-3) H Basophils (%) (Auto) 1 % (0-3) Neutrophils # (Auto) 4.5 x10^3uL (1.8-7.7) Lymphocytes # (Auto) 1.7 x10^3/uL (1.0-4.8) Monocytes # (Auto) 0.4 x10^3/uL (0.0-1.1) Eosinophils # (Auto) 1.1 x10^3/uL (0.0-0.7) H Basophils # (Auto) 0.1 x10^3/uL (0.0-0.2) Segmented Neutrophils % 57 % (35-66) Lymphocytes % 28 % (24-48) Monocytes % 3 % (0-10) Eosinophils % 12 % (0-5) H Platelet Estimate Adequate (ADEQUATE) Sodium Level 144 mmol/L (136-145) Potassium Level 3.8 mmol/L (3.5-5.1) Chloride Level 107 mmol/L (98-107) Carbon Dioxide Level 27 mmol/L (21-32) Anion Gap 10 (6-14) Blood Urea Nitrogen 19 mg/dL (7-20) Creatinine 0.7 mg/dL (0.6-1.0) Estimated GFR (Cockcroft-Gault) 102.6 BUN/Creatinine Ratio 27 (6-20) H Glucose Level 97 mg/dL (70-99) Calcium Level 8.7 mg/dL (8.5-10.1) Magnesium Level 1.9 mg/dL (1.8-2.4) Total Bilirubin 0.2 mg/dL (0.2-1.0) Aspartate Amino Transferase (AST) 18 U/L (15-37) Alanine Aminotransferase (ALT) 18 U/L (14-59) Alkaline Phosphatase 87 U/L (46-116) Creatine Kinase 186 U/L (26-192) Creatine Kinase MB (Mass) 3.1 ng/mL (0.0-3.6) Creatine Kinase MB Relative Index 1.7 % (0-4) Troponin I Quantitative < 0.017 ng/mL (0.000-0.055) AA-Cyq-Q-Type Natriuretic Peptide 202 pg/mL (0-124) H Total Protein 6.7 g/dL (6.4-8.2) Albumin 3.3 g/dL (3.4-5.0) L Albumin/Globulin Ratio 1.0 (1.0-1.7) Thyroid Stimulating Hormone (TSH) 3.009 uIU/mL (0.358-3.74) Laboratory Tests 11/27/18 19:15 Laboratory Tests 11/27/18 19:15 Microbiology 11/27/18 Urine Culture - Final, Complete 11/27/18 Urine Culture Result 1 (KENNETH) - Final, Complete (MESERET ARTHUR DO) Lab Values Laboratory Tests Test 11/27/18 19:05 11/27/18 19:15 Urine Collection Type Unknown Urine Color Yellow Urine Clarity Clear Urine pH 5.5 Urine Specific [place] 1.020 Urine Protein Negative mg/dL (NEG-TRACE) Urine Glucose (UA) Negative mg/dL (NEG) Urine Ketones (Stick) Trace mg/dL (NEG) Urine Blood Negative (NEG) Urine Nitrite Negative (NEG) Urine Bilirubin Negative (NEG) Urine Urobilinogen Dipstick 0.2 mg/dL (0.2 mg/dL) Urine Leukocyte Esterase Moderate (NEG) Urine RBC 0 /HPF (0-2) Urine WBC 11-20 /HPF (0-4) Urine Squamous Epithelial Cells Few /LPF Urine Bacteria Few /HPF (0-FEW) White Blood Count 7.7 x10^3/uL (4.0-11.0) Red Blood Count 3.70 x10^6/uL (3.50-5.40) Hemoglobin 10.8 g/dL (12.0-15.5) L Hematocrit 32.8 % (36.0-47.0) L Mean Corpuscular Volume 89 fL (79-100) Mean Corpuscular Hemoglobin 29 pg (25-35) Mean Corpuscular Hemoglobin Concent 33 g/dL (31-37) Red Cell Distribution Width 13.4 % (11.5-14.5) Platelet Count 204 x10^3/uL (140-400) Neutrophils (%) (Auto) 58 % (31-73) Lymphocytes (%) (Auto) 22 % (24-48) L Monocytes (%) (Auto) 6 % (0-9) Eosinophils (%) (Auto) 14 % (0-3) H Basophils (%) (Auto) 1 % (0-3) Neutrophils # (Auto) 4.5 x10^3uL (1.8-7.7) Lymphocytes # (Auto) 1.7 x10^3/uL (1.0-4.8) Monocytes # (Auto) 0.4 x10^3/uL (0.0-1.1) Eosinophils # (Auto) 1.1 x10^3/uL (0.0-0.7) H Basophils # (Auto) 0.1 x10^3/uL (0.0-0.2) Segmented Neutrophils % 57 % (35-66) Lymphocytes % 28 % (24-48) Monocytes % 3 % (0-10) Eosinophils % 12 % (0-5) H Platelet Estimate Adequate (ADEQUATE) Sodium Level 144 mmol/L (136-145) Potassium Level 3.8 mmol/L (3.5-5.1) Chloride Level 107 mmol/L (98-107) Carbon Dioxide Level 27 mmol/L (21-32) Anion Gap 10 (6-14) Blood Urea Nitrogen 19 mg/dL (7-20) Creatinine 0.7 mg/dL (0.6-1.0) Estimated GFR (Cockcroft-Gault) 102.6 BUN/Creatinine Ratio 27 (6-20) H Glucose Level 97 mg/dL (70-99) Calcium Level 8.7 mg/dL (8.5-10.1) Magnesium Level 1.9 mg/dL (1.8-2.4) Total Bilirubin 0.2 mg/dL (0.2-1.0) Aspartate Amino Transferase (AST) 18 U/L (15-37) Alanine Aminotransferase (ALT) 18 U/L (14-59) Alkaline Phosphatase 87 U/L (46-116) Creatine Kinase 186 U/L (26-192) Creatine Kinase MB (Mass) 3.1 ng/mL (0.0-3.6) Creatine Kinase MB Relative Index 1.7 % (0-4) Troponin I Quantitative < 0.017 ng/mL (0.000-0.055) VP-Ppf-O-Type Natriuretic Peptide 202 pg/mL (0-124) H Total Protein 6.7 g/dL (6.4-8.2) Albumin 3.3 g/dL (3.4-5.0) L Albumin/Globulin Ratio 1.0 (1.0-1.7) Thyroid Stimulating Hormone (TSH) 3.009 uIU/mL (0.358-3.74) Laboratory Tests 11/27/18 19:15 Laboratory Tests 11/27/18 19:15 (MAC LA APRN) EKG EKG 18:[address] Arthur sinus rhythm HR 68 no STEMI[] (MAC LA APRN) Radiology/Procedures Radiology/Procedures []PROCEDURE: PORTABLE CHEST 1V EXAM: AP View of the chest DATE: 11/27/2018 6:19 PM INDICATION: SOA, HX OF ASTHMA COMPARISON: No Prior FINDINGS/ IMPRESSION: The heart is not enlarged. Atherosclerotic calcifications of the tortuous aorta are seen. No focal parenchymal airspace opacity. No pleural effusion or pneumothorax. Mild eventration right hemidiaphragm. Electronically signed by: Uday Kay MD (11/27/2018 7:27 PM) [facility] DICTATED and SIGNED BY: UDAY KAY MD DATE: 11/27/181926 (MAC LA APRN) Course & Med Decision Making Course & Med Decision Making Pertinent Labs and Imaging studies reviewed. (See chart for details) This is a 63-year-old female patient presenting to the ED today to be evaluated for wheezing. Patient has a history of asthma. Arrives in the ED with wheezing. [facility] is from a prison. DuoNeb treatment and Solu-Medrol were ordered. Chest x-ray is negative for any acute findings, EKG was negative. Labs are negative including cardiac workup. Urine noted for UTI, discharged with cephalexin. Patient feeling better. Lungs cleared up, O2 sats above 96% on room air. Discharged back to the prison with prednisone she states she has a breathing machines/albuterol with medicine. (MAC LA APRN) Antonio Disclaimer Antonio Disclaimer This electronic medical record was generated, in whole or in part, using a voice recognition dictation system. (MAC LA APRN) Departure Departure Impression: Primary Impression: Asthma exacerbation Additional Impression: Urinary tract infection Disposition: HOME, SELF-CARE Condition: STABLE Referrals: UNKNOWN PCP NAME (PCP) follow up with your doctor in 1 week Patient Instructions: Asthma, Adult, Urinary Tract Infection Additional Instructions: You were evaluated for asthma. Please use the breathing treatments as needed for wheezing and shortness of breath due to asthma. You also have urinary tract infection, ensure you complete the prescribed antibiotics. Follow-up with your doctor in the next 3-7 days. Come back to the ED at any point symptoms worsen. Scripts Albuterol Sulfate (ALBUTEROL SULFATE NEB SOLN) 1.25 Mg/3 Ml Vial.neb 1 VIAL NEB Q4HRS, #150 ML Prov: MAC LA APRN 11/27/18 Prednisone (PREDNISONE) 50 Mg Tablet 1 TAB PO DAILY, #5 TAB Prov: MAC LA APRN 11/27/18 Cephalexin (CEPHALEXIN) 500 Mg Tablet 1 TAB PO BID, #14 TAB Prov: MAC LA APRN 11/27/18 Attending Signature Attending Signature I have reviewed the PA/OPTIMIZATION ANALYST's note and plan of care. I was available for consultation as needed during the patient's visit in the emergency department. I agree with the clinical impression, plan, and disposition. (MESERET ARTHUR DO) Problem Qualifiers Primary Impression: Asthma exacerbation Asthma severity: mild Asthma persistence: intermittent Qualified Codes: J45.21 - Mild intermittent asthma with (acute) exacerbation Additional Impression: Urinary tract infection Urinary tract infection type: site unspecified Hematuria presence: without hematuria Qualified Codes: N39.0 - Urinary tract infection, site not specified MAC LA APRN Nov 27, 2018 19:29 MESERET ARTHUR DO Dec 01, 2018 04:40
[2018-11-27 19:32] LABS: BILIRUBIN,URINE NEGATIVE (NEG); CLARITY,URINE CLEAR; COLOR,URINE YELLOW; NITRITE,URINE NEGATIVE (NEG); PH,URINE 5.5; PROTEIN,URINE NEGATIVE (NEG-TRACE); UROBILINOGEN,URINE 0.2 mg/dL (0.2 mg/dL)
[2018-11-27 19:34] LABS: CALCIUM 8.7 mg/dL (8.5-10.1); CREATININE 0.7 mg/dL (0.6-1.0); GFR 102.6; POTASSIUM 3.8 mmol/L (3.5-5.1)
[2018-11-27 19:40] LABS: ALBUMIN 3.3 g/dL (3.4-5.0); MAGNESIUM 1.9 mg/dL (1.8-2.4); TOTAL BILIRUBIN 0.2 mg/dL (0.2-1.0); TOTAL PROTEIN 6.7 g/dL (6.4-8.2)
[2018-11-27 19:54] LABS: BACTERIA,URINE FEW /HPF (0-FEW); RBC,URINE 0 /HPF (0-2); SQUAMOUS EPITHELIAL CELL,UR FEW /LPF
[2018-11-27 20:30] VITALS: BP 145/90
[2018-11-27 20:35] LABS: % EOS 12 % (0-5); % LYMPHS 28 % (24-48); % MONOS 3 % (0-10); % SEGS 57 % (35-66); PLT ESTIMATE ADEQUATE (ADEQUATE)
[2018-11-27] MEDS ORDERED: PRED50TA PO (20:56)
[2018-11-27] MEDS ORDERED: CEPH500T PO (20:56)
[2018-11-27] MEDS ORDERED: ALBU1.25 NEB (20:56)
--- NOTE | 2018-11-28 04:17 | EKG ---
[facility] [address] [place] [address] Test Date: 2018-11-27 Test Time: 18:53:58 Pat Name: SHANON SANCHEZ Department: Room: Gender: F Private Investigator: : [id number] Requested By: MAC LA Order Number: [id number] Reading MD: Clint Spivey MD Measurements Intervals [place] Rate: 67 P: 39 [place]: 184 QRS: 21 QRSD: 82 T: 61 QT: 388 QTc: 412 Interpretive Statements SINUS RHYTHM NON-SPECIFIC ST/T CHANGES Electronically Signed On 11-29-2018 14:44:49 CDT by Clint Spivey MD
== END 2018-11-27 21:30 | disposition home or self-care (01) ==
LOC: ER 17:56
DX: J45.21 Mild intermittent asthma with (acute) exacerbation (principal); N39.0 Urinary tract infection, site not specified; E11.9 Type 2 diabetes mellitus without complications; I10 Essential (primary) hypertension; E03.9 Hypothyroidism, unspecified; Z90.89 Acquired absence of other organs; Z88.8 Allergy status to other drugs, medicaments and biological substances
CPT/HCPCS: 36415; 71045; 80053; 81001; 82553; 83735; 83880; 84443; 84484; 85007; 85025; 87086; 93005; 94640; 96374; 99284; J2930; J7620

== ENCOUNTER → 2018-12-07 | Outpatient (CLI) | payer MEDICARE, MEDICAID ==
[2018-11-27 20:30] VITALS: BP 145/90
[~2018-12-07] MED LIST changes: +ALBU1.25 NEB; +CEPH500T PO; +PRED50TA PO
--- NOTE | 2018-12-07 18:01 | KCIC ---
Bilateral digital screening mammograms: Reason for examination: Routine screening. Comparison is made to previous studies dated 12/05/2017 and 11/25/2016. Interpretation is made with the benefit of CAD. The skin and nipples show no abnormalities. No abnormal lymph nodes are seen. The breast parenchyma is predominantly fatty. (Breast density: Category A.) There is a small new nodular parenchymal density in the left breast at the 3:00 B position which appears to measure approximately 4.5 mm in size. There is also suggestion of a additional faint nodular density posterior and inferiorly in the left breast on oblique view measuring approximately 7.6 mm in size approximately 10.5 cm from the nipple. This is not seen on cc exam. Further evaluation with additional coned compression views and ultrasound is recommended. There are no other dominant masses, suspicious calcifications or architectural distortions. Impression: Small 4.5 mm nodular density in the 3:00 B position of the left breast approximately 8 cm posterior to the nipple. 7.6 mm nodule located inferior in the left breast on oblique view approximately 10.5 cm from the nipple Recommend further evaluation with additional views and ultrasound. BI-RADS Category 0: Incomplete. Needs additional imaging evaluation. "Our facility is accredited by the [employer] Mammography Program." This patient's information has been entered into a reminder system for the patient to be notified with the results of her examination and a target date for the next mammogram. Electronically signed by: Charlene Alejandro MD (12/07/2018 5:58 PM) [id number]
== END | disposition home or self-care (01) ==
LOC: KCIC MAMMO 13:47
PROVIDERS: ATTEND Internal Medicine
DX: Z12.31 Encounter for screening mammogram for malignant neoplasm of breast (principal); N63.23 Unspecified lump in the left breast, lower outer quadrant
CPT/HCPCS: 77067

== ENCOUNTER → 2018-12-31 | Outpatient (CLI) | payer MEDICARE, MEDICAID ==
--- NOTE | 2018-12-31 15:32 | KCIC ---
Left breast diagnostic digital mammograms: Reason for examination: Nodular densities on screening mammogram. Comparison is made to mammographic exam dated 12/07/2018. Coned compression views were obtained in CC and oblique projections. With these additional views, the small parenchymal density posterior inferiorly on the oblique view does not persist. There is however a circumscribed nodule measuring approximately 4 mm in size at the 2:30 position approximately 5.5 cm posterior to the nipple which does persist and probably represents an intramammary lymph node. IMPRESSION: Probable intramammary lymph node at the 2:30 B position of the left breast. Ultrasound to follow. BI-RADS Category 0: Incomplete. Needs additional imaging evaluation. Left breast ultrasound: Ultrasound examination was performed in the area of mammographic concern. At the 2:30 position 6 cm from the nipple, there is a hypoechoic circumscribed lesion 6.9 mm in size. This probably represents an intramammary lymph node and has a benign appearance. No other cystic or solid lesions are seen. No abnormal appearing lymph nodes are seen in the axilla. IMPRESSION: 6.9 mm benign-appearing nodule at the 2:30 position appears corresponding with the area of mammographic concern. This probably represents an intramammary lymph node but recommend reevaluation with ultrasound 6 months. BI-RADS Category 3: Probably Benign. "Our facility is accredited by the [employer] Mammography Program." This patient's information has been entered into a reminder system for the patient to be notified with the results of her examination and a target date for the next mammogram. Electronically signed by: Charlene Alejandro MD (12/31/2018 3:29 PM) [id number]
== END | disposition home or self-care (01) ==
LOC: KCIC MAMMO 12:52
PROVIDERS: ATTEND Internal Medicine
DX: N63.21 Unspecified lump in the left breast, upper outer quadrant (principal)
CPT/HCPCS: 76641; 77065

== ENCOUNTER 2020-04-29 20:29 | Emergency (ER) | payer MEDICARE, MEDICAID ==
[~2020-04-29] VITALS: Ht 167.6 cm; Wt 100.0 kg
[~2020-04-29 20:29] MED LIST changes: +ACET325T9 PO; -CETI10TA22 PO; +CETI10TA24 PO; +DIVA250T14 PO; +HALO100V IM; +HALO10TA PO; +IBUP200T77 PO; +IPRA3AMP29 NEB; +OMEP40CA45 PO; -OMEP40CA5 PO; +PANT20TA2 PO; +SENN-182 PO
--- NOTE | 2020-04-29 20:53 | PHYS DOC ---
Past Medical History Past Medical History: Asthma, Bipolar, Diabetes-Type II, High Cholesterol, Hypertension, Hyperthyroid, Hypothyroid, IBS, Other Additional Past Medical Histor: SCHIZOAFFECTIVE DISORDER, COMMUNICATION DEFICIT, IMPULSE DISORDER Past Surgical History: Appendectomy Smoking Status: Never Smoker Alcohol Use: None Drug Use: None General Adult EDM: Chief Complaint: GTUBE REPLACEMENT/MALFUNCTION HPI: HPI: Patient is a 64 year old female who presents with here from [facility] by EMS with patient having pulled out her G-tube. Nursing facility reports that the patient was placed into some kind of a therapy session and was not happy about it and she pulled out her G-tube today. That G-tube has been placed for over a year and the patient has not pulled it out. Patient has a history of schizoaffective disorder, COPD, oral pharyngeal dysphasia, asthma, UTI, anemia, rhabdomyolysis, metabolic encephalopathy, hypokalemia, IBS, hypothyroidism, hypertension, high cholesterol. Abdomen is soft and nontender. When I asked the patient if she is having any pain she shakes her head no. Patient is not speaking when I ask her questions. Patient is alert and looking around the room and watching staff move around the room but is not speaking. Review of Systems: Review of Systems: Constitutional: Denies fever or chills. [] Eyes: Denies change in visual acuity. [] HENT: Denies nasal congestion or sore throat. [] Respiratory: Denies cough or shortness of breath. [] Cardiovascular: Denies chest pain or edema. [] GI: Denies abdominal pain, nausea, vomiting, bloody stools or diarrhea. [] : Denies dysuria. [] Musculoskeletal: Denies back pain or joint pain. [] Integument: Denies rash. [] Neurologic: Denies headache, focal weakness or sensory changes. [] Endocrine: Denies polyuria or polydipsia. [] Lymphatic: Denies swollen glands. [] Psychiatric: Denies depression or anxiety. [] Heart Score: Risk Factors: Risk Factors: DM, Current or recent (<one month) smoker, HTN, HLP, family history of CAD, obesity. Risk Scores: Score 0 - 3: 2.5% MACE over next 6 weeks - Discharge Home Score 4 - 6: 20.3% MACE over next 6 weeks - Admit for Clinical Observation Score 7 - 10: 72.7% MACE over next 6 weeks - Early Invasive Strategies Allergies: Allergies: Allergies Coded Allergies Type Severity Reaction Last Updated Verified diphenhydramine Allergy Intermediate 04/11/17 Yes Physical Exam: PE: Constitutional: Well developed, well nourished, no acute distress, non-toxic appearance. [] HENT: Normocephalic, atraumatic, bilateral external ears normal, oropharynx moist, no oral exudates, nose normal. [] Eyes: PERRLA, EOMI, conjunctiva normal, no discharge. [] Neck: Normal range of motion, no tenderness, supple, no stridor. [] Cardiovascular:Heart rate regular rhythm, no murmur [] Lungs & Thorax: Bilateral breath sounds clear to auscultation [] Abdomen: Bowel sounds normal, soft, no tenderness, no masses, no pulsatile masses. Hole where GI tube was placed with gauze over it. [] Skin: Warm, dry, no erythema, no rash. Surgical where GI -tube was placed. [] Back: No tenderness, no CVA tenderness. [] Extremities: No tenderness, no cyanosis, no clubbing, ROM intact, no edema. [] Neurologic: Alert and oriented X 3, normal motor function, normal sensory function, no focal deficits noted. [] Psychologic: Affect normal, judgement normal, mood normal. [] EKG: EKG: [][facility] [address] [place] [address] IMAGING REPORT Signed PATIENT: SHANON SANCHEZ ACCOUNT: [id number] : 1955 LOCATION: ER AGE: 64 SEX: F EXAM STATUS: REG ER ORD. PHYSICIAN: RUBY ABEBE APRN REASON: G tube replacement, need contrast PROCEDURE: KUB Study: CR KUB Indication: Gastrostomy tube replacement. Comparison: 02/24/2019 Findings: Radiopaque contrast instilled through a gastrostomy tube opacifies the stomach and proximal small bowel. No extravasation of contrast is seen. No findings on the single submitted image to suggest bowel obstruction. Impression: Normally positioned gastrostomy tube with contrast opacifying the stomach and proximal small bowel. Electronically signed by: JUSTIN SINGLETON MD (04/30/2020 12:22 AM) [id number] DICTATED and SIGNED BY: JUSTIN SINGLETON MD DATE: 04/30/20 0022 Radiology/Procedures: Radiology/Procedures: [] Course & Med Decision Making: Course & Med Decision Making Pertinent Labs and Imaging studies reviewed. (See chart for details) The HPI. Patient appears to be in no distress. There is gauze over the inse rtion site. There is no bleeding or drainage. 22F 20ml balloon G tube is replaced by Dr Driver. KUB is ordered. [] Dragon Disclaimer: Dragon Disclaimer: This electronic medical record was generated, in whole or in part, using a voice recognition dictation system. Departure Departure Impression: Primary Impression: Gastrostomy tube in place Disposition: 01 HOME, SELF-CARE Condition: STABLE Referrals: STEFAN WALTON MD (PCP) Patient Instructions: Medical Screening Exam Additional Instructions: G tube replaced. Follow up with primary care if needed. Justicifation of Admission Dx: Justifications for Admission: Justification of Admission Dx: N/A RUBY ABEBE LADLE HANDLER Apr 29, 2020 20:53
[2020-04-29] MEDS ORDERED: CONTRAST GIVEN. MC PRN (23:15)
[2020-04-29] MEDS ORDERED: IOHEXOL 240 MG/ML 50ML VIAL. PO ONE (23:30)
--- NOTE | 2020-04-30 00:25 | RAD ---
Study: CR KUB Indication: Gastrostomy tube replacement. Comparison: 02/24/2019 Findings: Radiopaque contrast instilled through a gastrostomy tube opacifies the stomach and proximal small bowel. No extravasation of contrast is seen. No findings on the single submitted image to suggest bowel obstruction. Impression: Normally positioned gastrostomy tube with contrast opacifying the stomach and proximal small bowel. Electronically signed by: JUSTIN SINGLETON MD (04/30/2020 12:22 AM) [id number]
[2020-04-30 01:00] VITALS: BP 124/59
== END 2020-04-30 01:05 | disposition home or self-care (01) ==
LOC: ER 20:29
DX: K94.23 Gastrostomy malfunction (principal); J45.909 Unspecified asthma, uncomplicated; E11.9 Type 2 diabetes mellitus without complications; F31.9 Bipolar disorder, unspecified; E78.00 Pure hypercholesterolemia, unspecified; I10 Essential (primary) hypertension; E03.9 Hypothyroidism, unspecified; K58.9 Irritable bowel syndrome, unspecified; Z90.89 Acquired absence of other organs; F25.9 Schizoaffective disorder, unspecified; Z88.5 Allergy status to narcotic agent; Y83.8 Other surgical procedures as the cause of abnormal reaction of the patient, or of later complication, without mention of misadventure at the time of the procedure; Y92.89 Other specified places as the place of occurrence of the external cause
CPT/HCPCS: 43762; 74018; 99285; Q9966

== ENCOUNTER 2020-05-14 12:33 | Inpatient (IN) | payer MEDICARE, MEDICAID ==
[~2020-05-14] VITALS: Ht 157.5 cm; Wt 68.0 kg
[~2020-05-14 12:33] MED LIST changes: -CETI10TA24 PO; +CETI10TA74 PO
--- NOTE | 2020-05-14 12:40 | PHYS DOC ---
Past Medical History Past Medical History: Constipation, Hypertension, UTI Additional Past Medical Histor: SCHIZOAFFECTIVE DISORDER, COMMUNICATION DEFICIT, IMPULSE DISORDER Past Surgical History: Other Additional Past Surgical Histo: Unable to provide information Smoking Status: Unknown if ever smoked Alcohol Use: None Drug Use: None General Adult EDM: Chief Complaint: ALTERED MENTAL STATUS HPI: HPI: Patient is a 64 year old female arrives via EMS with a chief complaint of altered mental status. Patient is from a care facility and reportedly had altered mental status and low blood pressure although her blood pressure is normalized now history and physical is limited due to altered mental status and poor cooperation. Patient denies any pain at this time but does not answer questions Review of Systems: Review of Systems: Review of systems is unobtainable due to altered mental status Heart Score: Risk Factors: Risk Factors: DM, Current or recent (<one month) smoker, HTN, HLP, family history of CAD, obesity. Risk Scores: Score 0 - 3: 2.5% MACE over next 6 weeks - Discharge Home Score 4 - 6: 20.3% MACE over next 6 weeks - Admit for Clinical Observation Score 7 - 10: 72.7% MACE over next 6 weeks - Early Invasive Strategies Allergies: Allergies: Allergies Coded Allergies Type Severity Reaction Last Updated Verified diphenhydramine Allergy Intermediate 04/11/17 Yes Physical Exam: PE: Constitutional: Well developed, well nourished, no acute distress, non-toxic appearance. [] HENT: Normocephalic, atraumatic, bilateral external ears normal, dry oropharynx, nose normal. [] Eyes: PERRLA, EOMI, conjunctiva normal, no discharge. [] Neck: Normal range of motion, no tenderness, supple, no stridor. [] Cardiovascular:Heart rate regular rhythm peripheral pulses intact, cap refill brisk Lungs & Thorax: Bilateral breath sounds clear, no respiratory distress Abdomen: Soft nondistended nontender PEG tube in place Skin: Warm, dry, no erythema, no rash. [] Back: No tenderness, no CVA tenderness. [] Extremities: No tenderness, no cyanosis, no clubbing, ROM intact, no edema. [] Neurologic: Patient is not answering questions so unable to assess orientation, patient will follow simple commands more so on the right side than the left although when her left arm is lifted it is able to be held normally against gravity Psychologic: Unable to assess due to altered mental status Current Patient Data: Labs: Laboratory Tests Test 05/14/20 12:50 White Blood Count 4.4 x10^3/uL Red Blood Count 3.85 x10^6/uL Hemoglobin 11.4 g/dL Hematocrit 33.1 % Mean Corpuscular Volume 86 fL Mean Corpuscular Hemoglobin 30 pg Mean Corpuscular Hemoglobin Concent 34 g/dL Red Cell Distribution Width 13.2 % Platelet Count 325 x10^3/uL Neutrophils (%) (Auto) 65 % Lymphocytes (%) (Auto) 23 % Monocytes (%) (Auto) 11 % Eosinophils (%) (Auto) 0 % Basophils (%) (Auto) 1 % Neutrophils # (Auto) 2.9 x10^3/uL Lymphocytes # (Auto) 1.0 x10^3/uL Monocytes # (Auto) 0.5 x10^3/uL Eosinophils # (Auto) 0.0 x10^3/uL Basophils # (Auto) 0.0 x10^3/uL Prothrombin Time 13.0 SEC Prothromb Time International Ratio 1.0 Activated Partial Thromboplast Time 28 SEC Urine Collection Type U cath Urine Color Yellow Urine Clarity Clear Urine pH 6.5 Urine Specific [place] 1.010 Urine Protein Negative mg/dL Urine Glucose (UA) Negative mg/dL Urine Ketones (Stick) 15 mg/dL Urine Blood Negative Urine Nitrite Negative Urine Bilirubin Negative Urine Urobilinogen Dipstick 1.0 mg/dL Urine Leukocyte Esterase Small Urine RBC 0 /HPF Urine WBC 11-20 /HPF Urine Squamous Epithelial Cells Few /LPF Urine Transitional Epithelial Cells Few /LPF Urine Bacteria Moderate /HPF Urine Mucus Mod /LPF Sodium Level 129 mmol/L Potassium Level 4.2 mmol/L Chloride Level 95 mmol/L Carbon Dioxide Level 25 mmol/L Anion Gap 9 Blood Urea Nitrogen 12 mg/dL Creatinine 0.7 mg/dL Estimated GFR (Cockcroft-Gault) 102.3 BUN/Creatinine Ratio 17 Glucose Level 86 mg/dL Calcium Level 8.7 mg/dL Total Bilirubin 0.1 mg/dL Aspartate Amino Transf (AST/SGOT) 16 U/L Alanine Aminotransferase (ALT/SGPT) 21 U/L Alkaline Phosphatase 83 U/L Troponin I Quantitative < 0.017 ng/mL Total Protein 6.3 g/dL Albumin 3.0 g/dL Albumin/Globulin Ratio 0.9 Current Medications Medications (Trade) Dose Ordered Sig/Chidi Route PRN Reason Start Time Stop Time Status Last Admin Dose Admin Sodium Chloride 1,000 ml @ 1,000 mls/hr 1X ONCE IV 05/14/20 14:00 05/14/20 14:59 DC 05/14/20 14:40 Ceftriaxone Sodium (Rocephin) 1 gm 1X ONCE IVP 05/14/20 14:00 05/14/20 14:10 DC 05/14/20 14:40 Vital Signs: Vital Signs Date Time Temp Pulse Resp B/P (MAP) Pulse Ox O2 Delivery O2 Flow Rate FiO2 05/14/20 15:00 70 16 100 05/14/20 14:00 86 16 100 05/14/20 12:56 97.5 84 18 114/70 (85) 100 Room Air 97.5 EKG: EKG: [] EKG interpreted by me normal sinus rhythm with rate 87 normal axis low voltage, nonspecific ST changes Radiology/Procedures: Radiology/Procedures: [][place] [address] IMAGING REPORT Signed PATIENT: SHANON SANCHEZ ACCOUNT: [id number] : 1955 LOCATION: ER AGE: 64 SEX: F EXAM STATUS: REG ER ORD. PHYSICIAN: TIMO DUNCAN MD REASON: ams PROCEDURE: PORTABLE CHEST 1V EXAM: CHEST 1 VIEW History: Altered mental status COMPARISON: None available. TECHNIQUE: Single portable radiograph of the chest FINDINGS: The cardiac silhouette is unremarkable. The lungs are clear bilaterally. The costophrenic sulci are clear and well demarcated. IMPRESSION: No radiographic evidence of an acute cardiopulmonary process. Electronically signed by: Dylan Scott MD (05/14/2020 1:22 PM) [id number] DICTATED and SIGNED BY: DYLAN SCOTT MD DATE: 05/14/[address] [address] IMAGING REPORT Signed PATIENT: STEVIE SANCHEZY Ania ACCOUNT: [id number] : 1955 LOCATION: ER AGE: 64 SEX: F EXAM STATUS: REG ER ORD. PHYSICIAN: TIMO DUNCAN MD REASON: ams PROCEDURE: CT HEAD WO CONTRAST CT HEAD INDICATION: Altered mental status COMPARISON: 02/25/2019 Exposure: One or more of the following individualized dose reduction techniques were utilized for this examination: 1. Automated exposure control 2. Adjustment of the mA and/or kV according to patient size 3. Use of iterative reconstruction technique TECHNIQUE: 5 mm contiguous axial images were obtained from the skull base to the vertex in both bone and soft tissue algorithm. FINDINGS: Mild bilateral periventricular white matter hypodensities likely chronic small vessel ischemic disease. No evidence of acute intracranial hemorrhage. No extra-axial fluid collections. No mass effect or midline shift. Ventricular size is appropriate. Basal cisterns are patent. No fractures identified.Rick-white differentiation is preserved.Globes and orbits are within normal limits. Paranasal sinuses and mastoid air cells are clear. IMPRESSION: No acute intracranial findings. Electronically signed by: Dylan Scott MD (05/14/2020 1:29 PM) [id number] DICTATED and SIGNED BY: DYLAN SCOTT MD DATE: 05/14/20 1329 Course & Med Decision Making: Course & Med Decision Making Pertinent Labs and Imaging studies reviewed. (See chart for details) [] 64-year-old female presents with altered mental status. Patient has no la teralizing deficits, doubt acute stroke. Patient has a urinary tract infection and hyponatremia has been treated with IV antibiotics and IV fluids. Patient admitted for further evaluation treatment. Dragon Disclaimer: Dragon Disclaimer: This electronic medical record was generated, in whole or in part, using a voice recognition dictation system. Departure Departure Impression: Primary Impression: Altered mental status Additional Impression: UTI (urinary tract infection) Disposition: ADMITTED INPATIENT Admitting Physician: LOUANN (VASYL) Referrals: STEFAN WALTON MD (PCP) Justicifation of Admission Dx: Justifications for Admission: Justification of Admission Dx: Yes (AMS, UTI) TIMO DUNCAN MD May 14, 2020 12:40
[2020-05-14 13:00] LABS: BASO % 1 % (0-3); EOS % 0 % (0-3); HEMATOCRIT 33.1 % (36.0-47.0); HEMOGLOBIN 11.4 g/dL (12.0-15.5); LYMPH % 23 % (24-48); MEAN CORPUSCULAR HEMOGLOBIN 30 pg (25-35); MEAN CORPUSCULAR HGB CONC 34 g/dL (31-37); MEAN CORPUSCULAR VOLUME 86 fL (79-100); MONO # 0.5 x10^3/uL (0.0-1.1); MONO % 11 % (0-9); NEUT # 2.9 x10^3/uL (1.8-7.7); NEUT % 65 % (31-73); PLATELET COUNT 325 x10^3/uL (140-400); RED BLOOD COUNT 3.85 x10^6/uL (3.50-5.40); RED CELL DISTRIBUTION WIDTH 13.2 % (11.5-14.5); WHITE BLOOD COUNT 4.4 x10^3/uL (4.0-11.0)
[2020-05-14 13:02] LABS: BILIRUBIN,URINE NEGATIVE (NEG); CLARITY,URINE CLEAR; COLOR,URINE YELLOW; NITRITE,URINE NEGATIVE (NEG); PH,URINE 6.5 (<5.0-8.0); PROTEIN,URINE NEGATIVE (NEG-TRACE)
--- NOTE | 2020-05-14 13:19 | EKG ---
[facility] [address] [place] [address] Test Date: 2020-05-14 Test Time: 12:39:46 Pat Name: SHANON SANCHEZ Department: Room: Gender: F Mine Inspector: : 1955 Requested By: TIMO DUNCAN Order Number: [id number] Reading MD: Measurements Intervals [place] Rate: 87 P: 47 IN: 164 QRS: -30 QRSD: 82 T: 66 QT: 356 QTc: 429 Interpretive Statements SINUS RHYTHM ABNORMAL LEFT AXIS DEVIATION LOW LIMB LEAD VOLTAGE QRS(T) CONTOUR ABNORMALITY CONSISTENT WITH INFERIOR INFARCT PROBABLY OLD ABNORMAL ECG RI6.02 No previous ECG available for comparison
[2020-05-14 13:20] LABS: SQUAMOUS EPITHELIAL CELL,UR FEW /LPF
[2020-05-14 13:21] LABS: BACTERIA,URINE MODERATE /HPF (0-FEW); RBC,URINE 0 /HPF (0-2)
[2020-05-14 13:22] LABS: ALBUMIN/GLOBULIN RATIO 0.9 (1.0-1.7); CALCIUM 8.7 mg/dL (8.5-10.1); CREATININE 0.7 mg/dL (0.6-1.0); GFR 102.3; TOTAL BILIRUBIN 0.1 mg/dL (0.2-1.0); TOTAL PROTEIN 6.3 g/dL (6.4-8.2)
--- NOTE | 2020-05-14 13:25 | RAD ---
EXAM: CHEST 1 VIEW History: Altered mental status COMPARISON: None available. TECHNIQUE: Single portable radiograph of the chest FINDINGS: The cardiac silhouette is unremarkable. The lungs are clear bilaterally. The costophrenic sulci are clear and well demarcated. IMPRESSION: No radiographic evidence of an acute cardiopulmonary process. Electronically signed by: Dylan Scott MD (05/14/2020 1:22 PM) [id number]
[2020-05-14 13:32] LABS: POTASSIUM 4.2 mmol/L (3.5-5.1)
--- NOTE | 2020-05-14 13:32 | RAD ---
CT HEAD INDICATION: Altered mental status COMPARISON: 02/25/2019 Exposure: One or more of the following individualized dose reduction techniques were utilized for this examination: 1. Automated exposure control 2. Adjustment of the mA and/or kV according to patient size 3. Use of iterative reconstruction technique TECHNIQUE: 5 mm contiguous axial images were obtained from the skull base to the vertex in both bone and soft tissue algorithm. FINDINGS: Mild bilateral periventricular white matter hypodensities likely chronic small vessel ischemic disease. No evidence of acute intracranial hemorrhage. No extra-axial fluid collections. No mass effect or midline shift. Ventricular size is appropriate. Basal cisterns are patent. No fractures identified.Rick-white differentiation is preserved.Globes and orbits are within normal limits. Paranasal sinuses and mastoid air cells are clear. IMPRESSION: No acute intracranial findings. Electronically signed by: Dylan Scott MD (05/14/2020 1:29 PM) [id number]
[2020-05-14] MEDS ORDERED: IV NORMAL SALINE 1000ML BAG 1,000 ML IV ONE (14:00)
[2020-05-14] MEDS ORDERED: cefTRIAXone IV Push 1 GM VIAL. IVP ONE (14:00)
[2020-05-14] MEDS ORDERED: ONDANSETRON PF 4 MG/2 ML VIAL. IV PRN (14:15)
[2020-05-14] MEDS: IV NORMAL SALINE 1000ML BAG 1,000 ML IV SCH (14:41)
[2020-05-14] MEDS ORDERED: POTASSIUM CHLORIDE 10MEQ 100 ML IV PRN (18:30)
[2020-05-14] MEDS ORDERED: ACETAMINOPHEN 650 MG/20.3 ML SOLUTION. GT PRN (18:30)
[2020-05-14] MEDS ORDERED: SENNOSIDES 8.6 MG TABLET PO PRN (18:30)
[2020-05-14] MEDS ORDERED: POTASSIUM CHLORIDE 10MEQ 100 ML IV SCH (18:30)
[2020-05-14] MEDS ORDERED: ONDANSETRON PF 4 MG/2 ML VIAL. IVP PRN (18:30)
[2020-05-14] MEDS ORDERED: POTASSIUM CHLORIDE 20 MEQ TABLET.ER. PO PRN (18:30)
[2020-05-14] MEDS ORDERED: MAGNESIUM SULFATE 2GM 50 ML IV SCH (18:30)
[2020-05-14] MEDS ORDERED: ELECTROLYTE (NON-ICU) PROTOCOL MC PRN (18:30)
[2020-05-14] MEDS ORDERED: DOCUSATE SODIUM 100 MG CAPSULE. PO PRN (18:30)
--- NOTE | 2020-05-14 18:36 | PDOC1 ---
History and Physical Date of Service: DOS: DATE: 05/14/20 TIME: 18:24 Chief Complaint: Chief Complain: Altered mental status History of Present Illness: HPI: History obtained from chart review and discussion with ED physician and RN: Patient is a 64-year-old female with past medical history of schizoaffective disorder, recent PEG tube placement, hypertension who presents via EMS to the ED with complaints from the facility for altered mental status. Staff from prison stated that patient began to start to drool. There was also an x-ray that was done on the abdomen that showed possible ileus. Patient is unable to provide any sort of history due to being nonverbal. Unsure if this is her baseline. Patient is unable to answer any questions and is not following any commands. Past Medical/Surgical History: PMH/PSH: Past Medical History: Constipation, Hypertension, SCHIZOAFFECTIVE DISORDER, COMMUNICATION DEFICIT, IMPULSE DISORDER Past Surgical History: PEG tube placement Allergies: Allergies: Coded Allergies: diphenhydramine (Verified Allergy, Intermediate, 04/11/17) Family History: Family History: Unable to obtain Social History: Social History: Unable to obtain Current Medications: Current Medications Current Medications Sodium Chloride 1,000 ml @ 1,000 mls/hr 1X ONCE IV Last administered on 05/14/20at 14:40; Start 05/14/20 at 14:00; Stop 05/14/20 at 14:59; Status DC Ceftriaxone Sodium (Rocephin) 1 gm 1X ONCE IVP Last administered on 05/14/20at 14:40; Start 05/14/20 at 14:00; Stop 05/14/20 at 14:10; Status DC Ondansetron HCl (Zofran) 4 mg PRN Q8HRS PRN IV NAUSEA/VOMITING Last administered on 05/14/20at 14:40; Start 05/14/20 at 14:15; Stop 05/15/20 at 14:14 Sodium Chloride 1,000 ml @ 100 mls/hr Q10H IV Last administered on 05/14/20at 14:41; Start 05/14/20 at 14:02; Stop 05/15/20 at 14:01 Sennosides (Senna) 17.2 mg PRN BID PRN PO CONSTIPATION; Start 05/14/20 at 18:30; Status UNV Docusate Sodium (Colace) 100 mg PRN DAILY PRN PO HARD STOOLS; Start 05/14/20 at 18:30; Status UNV Ondansetron HCl (Zofran) 4 mg PRN Q6HRS PRN IVP NAUSEA/VOMITING; Start 05/14/20 at 18:30; Status UNV Potassium Chloride (Klor-Con) 40 meq 1X PRN PO PER PROTOCOL; Start 05/14/20 at 18:30; Status UNV Magnesium Oxide (Magnesium Oxide) 400 mg BID PO ; Start 05/14/20 at 21:00; Stop 05/16/20 at 09:01; Status UNV Potassium Chloride/Water 100 ml @ 100 mls/hr Q1H IV ; Start 05/14/20 at 18:30; Stop 05/14/20 at 22:29; Status UNV Magnesium Sulfate 50 ml @ 25 mls/hr Q24H IV ; Start 05/14/20 at 18:30; Stop 05/16/20 at 20:29; Status UNV Active Scripts Active Reported Haloperidol Decanoate 100 Mg/1 Ml Vial 100 Mg IM MONTHLY Ibuprofen 200 Mg Tablet 600 Mg PO DAILY Haloperidol 10 Mg Tablet 1 Tab PO QHS Divalproex Sodium Er (Divalproex Sodium) 250 Mg Tab.er.24h 750 Mg PO TID Senna (Sennosides) 8.6 Mg Tablet 8.6 Mg PO DAILY Protonix (Pantoprazole Sodium) 20 Mg Tablet.dr 40 Mg PO DAILY Duoneb 0.5-3(2.5) Mg/3 Ml (Albuterol/Ipratropium) 3 Ml Ampul.neb 3 Ml NEB PRN QID PRN Tylenol (Acetaminophen) 325 Mg Tablet 650 Mg PO PRN Q6HRS PRN Fortamet Er (Metformin Hcl) 500 Mg Tab.er.24 500 Mg PO DAILYWBKFT Flonase Allergy Relief (Fluticasone Propionate) 9.9 Ml [place].susp 2 Sprays NS DAILY Bentyl (Dicyclomine Hcl) 10 Mg Capsule 1 Cap PO TID Synthroid (Levothyroxine Sodium) 25 Mcg Tablet 1 Tab PO DAILY Losartan Potassium (Losartan Potassium) 25 Mg Tablet 25 Mg PO DAILY ROS: Review of Systems Review of System Unable to obtain Physical Exam: Vital Signs: Vital Signs Date Time Temp Pulse Resp B/P (MAP) Pulse Ox O2 Delivery O2 Flow Rate FiO2 05/14/20 15:00 70 16 100 05/14/20 12:56 97.5 114/70 (85) Room Air 97.5 Physcial Exam: GEN: No apparent distress. Alert and oriented HEENT: Normal cephalic, atraumatic, external auditory canals are patent EYES: Extraocular muscles are intact, pupil are equally round and reactive to light and accommodation MUSCULOSKELETAL: Well developed , well nourished, good range of motion ENDOCRINE: No thyromegaly was palpated LYMPHATICS: No cervical chain or axillary nodes were noted HEMATOPOIETIC: No bruising NECK: Supple, no JVD, no thyromegaly was noted LUNGS: Clear to auscultation in all lung ferrell without rhonchi or wheezing HEART: RRR, S!, S2 present. Peripheral pulses intact, no obvious murmurs noted ABDOMEN: Soft, nontender. Positive bowel sounds, no organomegaly, normal bowel sounds. PEG tube site in place without any surrounding erythema or bleeding. EXTREMITIES: Without clubbing, cyanosis, or edema. Pedal pulses intact. Negative Homans sign NEUROLOGIC: Normal speech and tone. A&O x 3, moves all extremities, no obvious focal deficits PSYCHIATRIC: Normal affect, normal mood. Stable SKIN: No ulcerations or rashes, good skin turgor, no jaundice VASCULAR: Good capillary refill, neurovascular bundle appears to be intact Labs: Labs: Laboratory Tests Test 05/14/20 12:50 White Blood Count 4.4 x10^3/uL (4.0-11.0) Red Blood Count 3.85 x10^6/uL (3.50-5.40) Hemoglobin 11.4 g/dL (12.0-15.5) Hematocrit 33.1 % (36.0-47.0) Mean Corpuscular Volume 86 fL (79-100) Mean Corpuscular Hemoglobin 30 pg (25-35) Mean Corpuscular Hemoglobin Concent 34 g/dL (31-37) Red Cell Distribution Width 13.2 % (11.5-14.5) Platelet Count 325 x10^3/uL (140-400) Neutrophils (%) (Auto) 65 % (31-73) Lymphocytes (%) (Auto) 23 % (24-48) Monocytes (%) (Auto) 11 % (0-9) Eosinophils (%) (Auto) 0 % (0-3) Basophils (%) (Auto) 1 % (0-3) Neutrophils # (Auto) 2.9 x10^3/uL (1.8-7.7) Lymphocytes # (Auto) 1.0 x10^3/uL (1.0-4.8) Monocytes # (Auto) 0.5 x10^3/uL (0.0-1.1) Eosinophils # (Auto) 0.0 x10^3/uL (0.0-0.7) Basophils # (Auto) 0.0 x10^3/uL (0.0-0.2) Prothrombin Time 13.0 SEC (11.7-14.0) Prothromb Time International Ratio 1.0 (0.8-1.1) Activated Partial Thromboplast Time 28 SEC (24-38) Urine Collection Type U cath Urine Color Yellow Urine Clarity Clear Urine pH 6.5 (<5.0-8.0) Urine Specific [place] 1.010 (1.000-1.030) Urine Protein Negative mg/dL (NEG-TRACE) Urine Glucose (UA) Negative mg/dL (NEG) Urine Ketones (Stick) 15 mg/dL (NEG) Urine Blood Negative (NEG) Urine Nitrite Negative (NEG) Urine Bilirubin Negative (NEG) Urine Urobilinogen Dipstick 1.0 mg/dL (0.2 mg/dL) Urine Leukocyte Esterase Small (NEG) Urine RBC 0 /HPF (0-2) Urine WBC 11-20 /HPF (0-4) Urine Squamous Epithelial Cells Few /LPF Urine Transitional Epithelial Cells Few /LPF Urine Bacteria Moderate /HPF (0-FEW) Urine Mucus Mod /LPF Sodium Level 129 mmol/L (136-145) Potassium Level 4.2 mmol/L (3.5-5.1) Chloride Level 95 mmol/L (98-107) Carbon Dioxide Level 25 mmol/L (21-32) Anion Gap 9 (6-14) Blood Urea Nitrogen 12 mg/dL (7-20) Creatinine 0.7 mg/dL (0.6-1.0) Estimated GFR (Cockcroft-Gault) 102.3 BUN/Creatinine Ratio 17 (6-20) Glucose Level 86 mg/dL (70-99) Calcium Level 8.7 mg/dL (8.5-10.1) Total Bilirubin 0.1 mg/dL (0.2-1.0) Aspartate Amino Transf (AST/SGOT) 16 U/L (15-37) Alanine Aminotransferase (ALT/SGPT) 21 U/L (14-59) Alkaline Phosphatase 83 U/L (46-116) Troponin I Quantitative < 0.017 ng/mL (0.000-0.055) Total Protein 6.3 g/dL (6.4-8.2) Albumin 3.0 g/dL (3.4-5.0) Albumin/Globulin Ratio 0.9 (1.0-1.7) Laboratory Tests Test 05/14/20 12:50 White Blood Count 4.4 x10^3/uL (4.0-11.0) Red Blood Count 3.85 x10^6/uL (3.50-5.40) Hemoglobin 11.4 g/dL (12.0-15.5) Hematocrit 33.1 % (36.0-47.0) Mean Corpuscular Volume 86 fL (79-100) Mean Corpuscular Hemoglobin 30 pg (25-35) Mean Corpuscular Hemoglobin Concent 34 g/dL (31-37) Red Cell Distribution Width 13.2 % (11.5-14.5) Platelet Count 325 x10^3/uL (140-400) Neutrophils (%) (Auto) 65 % (31-73) Lymphocytes (%) (Auto) 23 % (24-48) Monocytes (%) (Auto) 11 % (0-9) Eosinophils (%) (Auto) 0 % (0-3) Basophils (%) (Auto) 1 % (0-3) Neutrophils # (Auto) 2.9 x10^3/uL (1.8-7.7) Lymphocytes # (Auto) 1.0 x10^3/uL (1.0-4.8) Monocytes # (Auto) 0.5 x10^3/uL (0.0-1.1) Eosinophils # (Auto) 0.0 x10^3/uL (0.0-0.7) Basophils # (Auto) 0.0 x10^3/uL (0.0-0.2) Prothrombin Time 13.0 SEC (11.7-14.0) Prothromb Time International Ratio 1.0 (0.8-1.1) Activated Partial Thromboplast Time 28 SEC (24-38) Urine Collection Type U cath Urine Color Yellow Urine Clarity Clear Urine pH 6.5 (<5.0-8.0) Urine Specific [place] 1.010 (1.000-1.030) Urine Protein Negative mg/dL (NEG-TRACE) Urine Glucose (UA) Negative mg/dL (NEG) Urine Ketones (Stick) 15 mg/dL (NEG) Urine Blood Negative (NEG) Urine Nitrite Negative (NEG) Urine Bilirubin Negative (NEG) Urine Urobilinogen Dipstick 1.0 mg/dL (0.2 mg/dL) Urine Leukocyte Esterase Small (NEG) Urine RBC 0 /HPF (0-2) Urine WBC 11-20 /HPF (0-4) Urine Squamous Epithelial Cells Few /LPF Urine Transitional Epithelial Cells Few /LPF Urine Bacteria Moderate /HPF (0-FEW) Urine Mucus Mod /LPF Sodium Level 129 mmol/L (136-145) Potassium Level 4.2 mmol/L (3.5-5.1) Chloride Level 95 mmol/L (98-107) Carbon Dioxide Level 25 mmol/L (21-32) Anion Gap 9 (6-14) Blood Urea Nitrogen 12 mg/dL (7-20) Creatinine 0.7 mg/dL (0.6-1.0) Estimated GFR (Cockcroft-Gault) 102.3 BUN/Creatinine Ratio 17 (6-20) Glucose Level 86 mg/dL (70-99) Calcium Level 8.7 mg/dL (8.5-10.1) Total Bilirubin 0.1 mg/dL (0.2-1.0) Aspartate Amino Transf (AST/SGOT) 16 U/L (15-37) Alanine Aminotransferase (ALT/SGPT) 21 U/L (14-59) Alkaline Phosphatase 83 U/L (46-116) Troponin I Quantitative < 0.017 ng/mL (0.000-0.055) Total Protein 6.3 g/dL (6.4-8.2) Albumin 3.0 g/dL (3.4-5.0) Albumin/Globulin Ratio 0.9 (1.0-1.7) Images: Images HEAD CT No acute intracranial abnormality CXR IMPRESSION: No radiographic evidence of an acute cardiopulmonary process. Assessment/Plan Assessment/Plan Acute metabolic encephalopathy NOS Acute hypodelirium or confusional state Acute UTI Status post PEG tube placement with possible ileus Schizoaffective disorder Acute electrolyte derangementshyponatremia and hypochloremia likely due to volume depletion Volume depletion Normocytic anemia due to chronic inflammatory disease No obvious centrally acting medications currently. No obvious signs of infection on physical exam. No fevers or nuchal rigidity. CT head is negative for acute etiology. No history or signs of trauma Pending GI evaluationwill order KUB in the meantime for possible ileus Nutrition consult for PEG tube feedings Pending psych evaluation for schizoaffective disorder Pending TSH, B12 and ferritin levels Consider dementia prevention protocol Provide adequate lighting (open curtains during the day, turn the lights off at night) Provide frequent personal contact with family, friends, and staff or TV PT OT Avoid physical restraints, catheters or tubes, and benzodiazepines Nutrition consult if there is malnutrition or concern for vitamin deficiencies Continue IV fluids Continue IV empiric antibiotics Pending urine and blood cultures Lovenox for DVT prophylaxis Protonix GI prophylaxis ADA diet Full code Discussed with RN and SW Disposition pending GI and psych evaluation Surrogate decision maker is the sister Justifications for Admission Other Justification AMS SHEA FALLON MD May 14, 2020 18:35
--- NOTE | 2020-05-14 18:38 | NUR ---
[facility] reports that patient had positive COVID-19 test on 02/26/2020 and has not been retested since.
[2020-05-14] MEDS ORDERED: VALP250S3 PO (18:47)
[2020-05-14] MEDS ORDERED: ASPI81TA59 PO (18:47)
[2020-05-14] MEDS ORDERED: LEVO50TA5 PO (18:47)
[2020-05-14 19:00] VITALS: BP 131/83
--- NOTE | 2020-05-14 20:31 | RAD ---
Exam: Abdomen one view INDICATION: Upright KUB, portable. Ileus TECHNIQUE: Supine view the abdomen Comparisons: 04/29/2020 FINDINGS: No dilated loops of bowel are identified within the abdomen. Visualized lung bases are clear. No free air. IMPRESSION: No dilated loops of bowel are identified. Electronically signed by: Bryn Maya MD (05/14/2020 8:28 PM) [id number]
[2020-05-14] MEDS: ENOXAPARIN 40 MG/0.4 ML SYRINGE. SQ SCH (20:53)
[2020-05-14] MEDS ORDERED: MAGNESIUM OXIDE 400 MG TABLET PO SCH (21:00)
[2020-05-14 23:00] VITALS: BP 146/77
[2020-05-15] MEDS: DEXTROSE 50% 25 GM / 50ML DISP.SYRIN. IV PRN ×2 (00:03→06:18)
[2020-05-15] MEDS: IV NORMAL SALINE 1000ML BAG 1,000 ML IV SCH ×2 (00:04→13:57)
[2020-05-15 03:07] VITALS: BP 90/60
[2020-05-15] MEDS: PANTOPRAZOLE IV PUSH 40 MG VIAL. IVP SCH (06:21)
[2020-05-15 07:05] VITALS: BP 104/67
[2020-05-15] MEDS: ASPIRIN ENTERIC COATED 81 MG TABLET.DR. PO SCH (08:29)
[2020-05-15 09:41] LABS: BASO % 1 % (0-3); EOS % 0 % (0-3); HEMOGLOBIN 9.9 g/dL (12.0-15.5); LYMPH # 0.7 x10^3/uL (1.0-4.8); LYMPH % 24 % (24-48); MEAN CORPUSCULAR HEMOGLOBIN 30 pg (25-35); MEAN CORPUSCULAR HGB CONC 34 g/dL (31-37); MEAN CORPUSCULAR VOLUME 87 fL (79-100); MONO # 0.4 x10^3/uL (0.0-1.1); MONO % 13 % (0-9); NEUT # 1.8 x10^3/uL (1.8-7.7); NEUT % 62 % (31-73); PLATELET COUNT 274 x10^3/uL (140-400); RED BLOOD COUNT 3.34 x10^6/uL (3.50-5.40); RED CELL DISTRIBUTION WIDTH 12.8 % (11.5-14.5); WHITE BLOOD COUNT 2.9 x10^3/uL (4.0-11.0)
--- NOTE | 2020-05-15 09:57 | PDOC2 ---
GI CONSULT Date of Service: DATE: 05/15/20 TIME: 09:52 Reason For Consult: ileus, abd pain HPI: HPI: 64 y/o female from living facility w/ AMS, drooling, and ?ileus. No history from her. Noted w/ UTI, abd x-ray here unrevealing. H/o schizophrenia, CVA, and dysphagia w/ PEG in place (initially placed by Dr. Jean in 02/2019 - seems replaced since). No GI concerns per nurse. EGD and colonoscopy in 04/[address] Cintron for epigastric pain and h/o colon polyps - path report indicates tubular adenoma from ascending colon and other records mentions h/o diverticulosis and "tortuosity" on colonoscopy in 2011. Had elevated LFTs in 2018 w/ unremarkable liver imaging and negative Hepatitis panel. No GB, pancreas, or PUD history. On ASA and PPI here. PMH: PMH: CVA, HTN, HLD, DM, hypothyroidism, anxiety, DENG, sinusitis, schizoaffective, breast nodule, dysphagia PEG, appendectomy FH: Family History: No pertinent hx Social History: Smoke: No ALCOHOL: none Drugs: None ROS: Unable to obtain. Vitals: Vitals: Vital Signs Date Time Temp Pulse Resp B/P (MAP) Pulse Ox O2 Delivery O2 Flow Rate FiO2 05/15/20 07:05 97.2 82 20 104/67 (79) 95 Room Air 97.2 Labs: Labs: Laboratory Tests Test 05/14/20 12:50 05/14/20 20:52 05/14/20 23:45 05/15/20 00:18 White Blood Count 4.4 x10^3/uL (4.0-11.0) Red Blood Count 3.85 x10^6/uL (3.50-5.40) Hemoglobin 11.4 g/dL (12.0-15.5) Hematocrit 33.1 % (36.0-47.0) Mean Corpuscular Volume 86 fL (79-100) Mean Corpuscular Hemoglobin 30 pg (25-35) Mean Corpuscular Hemoglobin Concent 34 g/dL (31-37) Red Cell Distribution Width 13.2 % (11.5-14.5) Platelet Count 325 x10^3/uL (140-400) Neutrophils (%) (Auto) 65 % (31-73) Lymphocytes (%) (Auto) 23 % (24-48) Monocytes (%) (Auto) 11 % (0-9) Eosinophils (%) (Auto) 0 % (0-3) Basophils (%) (Auto) 1 % (0-3) Neutrophils # (Auto) 2.9 x10^3/uL (1.8-7.7) Lymphocytes # (Auto) 1.0 x10^3/uL (1.0-4.8) Monocytes # (Auto) 0.5 x10^3/uL (0.0-1.1) Eosinophils # (Auto) 0.0 x10^3/uL (0.0-0.7) Basophils # (Auto) 0.0 x10^3/uL (0.0-0.2) Prothrombin Time 13.0 SEC (11.7-14.0) Prothromb Time International Ratio 1.0 (0.8-1.1) Activated Partial Thromboplast Time 28 SEC (24-38) Urine Collection Type U cath Urine Color Yellow Urine Clarity Clear Urine pH 6.5 (<5.0-8.0) Urine Specific [place] 1.010 (1.000-1.030) Urine Protein Negative mg/dL (NEG-TRACE) Urine Glucose (UA) Negative mg/dL (NEG) Urine Ketones (Stick) 15 mg/dL (NEG) Urine Blood Negative (NEG) Urine Nitrite Negative (NEG) Urine Bilirubin Negative (NEG) Urine Urobilinogen Dipstick 1.0 mg/dL (0.2 mg/dL) Urine Leukocyte Esterase Small (NEG) Urine RBC 0 /HPF (0-2) Urine WBC 11-20 /HPF (0-4) Urine Squamous Epithelial Cells Few /LPF Urine Transitional Epithelial Cells Few /LPF Urine Bacteria Moderate /HPF (0-FEW) Urine Mucus Mod /LPF Sodium Level 129 mmol/L (136-145) Potassium Level 4.2 mmol/L (3.5-5.1) Chloride Level 95 mmol/L (98-107) Carbon Dioxide Level 25 mmol/L (21-32) Anion Gap 9 (6-14) Blood Urea Nitrogen 12 mg/dL (7-20) Creatinine 0.7 mg/dL (0.6-1.0) Estimated GFR (Cockcroft-Gault) 102.3 BUN/Creatinine Ratio 17 (6-20) Glucose Level 86 mg/dL (70-99) Calcium Level 8.7 mg/dL (8.5-10.1) Ferritin 106 ng/mL (8-252) Total Bilirubin 0.1 mg/dL (0.2-1.0) Aspartate Amino Transf (AST/SGOT) 16 U/L (15-37) Alanine Aminotransferase (ALT/SGPT) 21 U/L (14-59) Alkaline Phosphatase 83 U/L (46-116) Troponin I Quantitative < 0.017 ng/mL (0.000-0.055) Total Protein 6.3 g/dL (6.4-8.2) Albumin 3.0 g/dL (3.4-5.0) Albumin/Globulin Ratio 0.9 (1.0-1.7) Vitamin B12 Level 547 pg/mL (247-911) Glucose (Fingerstick) 77 mg/dL (70-99) 58 mg/dL (70-99) 79 mg/dL (70-99) Test 05/15/20 05:31 05/15/20 06:32 05/15/20 08:50 Glucose (Fingerstick) 64 mg/dL (70-99) 155 mg/dL (70-99) White Blood Count 2.9 x10^3/uL (4.0-11.0) Red Blood Count 3.34 x10^6/uL (3.50-5.40) Hemoglobin 9.9 g/dL (12.0-15.5) Hematocrit 29.0 % (36.0-47.0) Mean Corpuscular Volume 87 fL (79-100) Mean Corpuscular Hemoglobin 30 pg (25-35) Mean Corpuscular Hemoglobin Concent 34 g/dL (31-37) Red Cell Distribution Width 12.8 % (11.5-14.5) Platelet Count 274 x10^3/uL (140-400) Neutrophils (%) (Auto) 62 % (31-73) Lymphocytes (%) (Auto) 24 % (24-48) Monocytes (%) (Auto) 13 % (0-9) Eosinophils (%) (Auto) 0 % (0-3) Basophils (%) (Auto) 1 % (0-3) Neutrophils # (Auto) 1.8 x10^3/uL (1.8-7.7) Lymphocytes # (Auto) 0.7 x10^3/uL (1.0-4.8) Monocytes # (Auto) 0.4 x10^3/uL (0.0-1.1) Eosinophils # (Auto) 0.0 x10^3/uL (0.0-0.7) Basophils # (Auto) 0.0 x10^3/uL (0.0-0.2) Allergies: Coded Allergies: diphenhydramine (Verified Allergy, Intermediate, 04/11/17) Medications: Current Medications Medications (Trade) Dose Ordered Sig/Chidi Route PRN Reason Start Time Stop Time Status Last Admin Dose Admin Sodium Chloride 1,000 ml @ 1,000 mls/hr 1X ONCE IV 05/14/20 14:00 05/14/20 14:59 DC 05/14/20 14:40 Ceftriaxone Sodium (Rocephin) 1 gm 1X ONCE IVP 05/14/20 14:00 05/14/20 14:10 DC 05/14/20 14:40 Ondansetron HCl (Zofran) 4 mg PRN Q8HRS PRN IV NAUSEA/VOMITING 05/14/20 14:15 05/14/20 18:25 DC 05/14/20 14:40 Sodium Chloride 1,000 ml @ 100 mls/hr Q10H IV 05/14/20 14:02 05/15/20 14:01 05/15/20 00:04 Aspirin (Ecotrin) 81 mg DAILYWBKFT PO 05/15/20 08:00 05/15/20 08:29 Dextrose (Dextrose 50%-Water Syringe) 12.5 gm PRN Q15MIN PRN IV SEE COMMENTS 05/14/20 18:30 05/15/20 06:18 Enoxaparin Sodium (Lovenox 40mg Syringe) 40 mg Q24H SQ 05/14/20 20:00 05/14/20 20:53 Pantoprazole Sodium (PROTONIX VIAL for IV PUSH) 40 mg DAILYAC IVP 05/15/20 07:30 05/15/20 06:21 Imaging: Imaging: Head CT IMPRESSION: No acute intracranial findings. CXR IMPRESSION: No radiographic evidence of an acute cardiopulmonary process. KUB IMPRESSION: No dilated loops of bowel are identified. PE: GEN: chronically ill HEENT: Atraumatic, PERRL, lips dry LUNGS: diminsihed HEART: RRR ABD: PEG in place, BS+, non-tender EXTREMITY: No edema SKIN: feels warm NEURO/PSYCH: does not verbalize A/P: A/P: AMS, UTI PEG in place Chronic anemia - note normal B12 Leukopenia, hyponatremia CRC screen, h/o adenomatous polyps - UTD -- X-ray unrevealing, abd exam benign. Okay for PEG feeds per GI, observe. WALLACE GIBSON May 15, 2020 09:57
--- NOTE | 2020-05-15 10:12 | NUR ---
MARCELLA following. Discussed with RN. 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 Pt on room air, NPO. Pt had positive COVID-19 test on 02/26/2020 (per [facility]). RN reported COVID was retested here, however SW is not seeing an order in the chart. RN following up to ensure this is done, as pt will need this test result prior to discharge back to facility. PT/OT ordered, psych consulted. Dr. Sullivan anticipates possible discharge back to [facility] tomorrow (05/16/2020). SW to fax updates when more available. Addendum: 05/15/20 at 1244 by GINNA NARANJO MARCELLA faxed clinical update to [facility]. 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
[2020-05-15 10:15] LABS: CREATININE 0.6 mg/dL (0.6-1.0); GFR 122.2; MAGNESIUM 1.9 mg/dL (1.8-2.4); PHOSPHORUS 2.6 mg/dL (2.6-4.7); POTASSIUM 3.8 mmol/L (3.5-5.1)
[2020-05-15 11:05] VITALS: BP 112/68
--- NOTE | 2020-05-15 11:27 | PDOC ---
[employer] PROGRESS NOTE Date of Service DOS: DATE: 05/15/20 TIME: 11:25 Chief Complaint Chief Complaint Acute metabolic encephalopathy NOS Acute hypodelirium or confusional state Acute UTI Status post PEG tube placement with possible ileus Schizoaffective disorder Acute electrolyte derangementshyponatremia and hypochloremia likely due to volume depletion Volume depletion Normocytic anemia due to chronic inflammatory disease No obvious centrally acting medications currently. No obvious signs of infection on physical exam. No fevers or nuchal rigidity. CT head is negative for acute etiology. No history or signs of trauma Pending GI evaluationwe will advance tube feedings and observe Nutrition consult for PEG tube feedings Pending psych evaluation for schizoaffective disorder Pending TSH, B12 and ferritin levels Consider dementia prevention protocol Provide adequate lighting (open curtains during the day, turn the lights off at night) Provide frequent personal contact with family, friends, and staff or TV PT OT Avoid physical restraints, catheters or tubes, and benzodiazepines Nutrition consult if there is malnutrition or concern for vitamin deficiencies Continue IV fluids Continue IV empiric antibiotics Pending urine and blood cultures Lovenox for DVT prophylaxis Protonix GI prophylaxis ADA diet Full code Discussed with RN and SW Disposition pending GI and psych evaluation Surrogate decision maker is the sister History of Present Illness History of Present Illness 64-year-old female with past medical history of schizoaffective disorder, recent PEG tube placement, hypertension who presents via EMS to the ED with complaints from the facility for altered mental status. Staff from long-term stated that patient began to start to drool. There was also an x-ray that was done on the abdomen that showed possible ileus. Patient is unable to provide any sort of history due to being nonverbal. Unsure if this is her baseline. Patient is unable to answer any questions and is not following any commands.33 05/15/2020 No acute events overnight. Patient continues to be nonverbal but moving all of her extremities. She is able to make eye contact. Unable to obtain more history. Abdominal exam is benign. Patient's chart, labs, images were reviewed and discussed with RN Vitals/I&O Vitals/I&O: Vital Signs Date Time Temp Pulse Resp B/P (MAP) Pulse Ox O2 Delivery O2 Flow Rate FiO2 05/15/20 11:05 98.8 71 19 112/68 (83) 100 Room Air 98.8 Physical Exam Physical Exam: GEN: No apparent distress. Alert and oriented HEENT: Normal cephalic, atraumatic, external auditory canals are patent NECK: Supple, no JVD, no thyromegaly was noted LUNGS: Bilateral crackles HEART: RRR, S1, S2 present. Peripheral pulses intact, no obvious murmurs noted ABDOMEN: Soft, nontender. Positive bowel sounds, no organomegaly, normal bowel sounds. PEG tube site is clear dry and intact. EXTREMITIES: Without clubbing, cyanosis, or edema. Pedal pulses intact. Negative Homans sign Lungs: Clear Labs Labs: Laboratory Tests Test 05/14/20 12:50 05/14/20 20:52 05/14/20 23:45 05/15/20 00:18 White Blood Count 4.4 x10^3/uL (4.0-11.0) Red Blood Count 3.85 x10^6/uL (3.50-5.40) Hemoglobin 11.4 g/dL (12.0-15.5) Hematocrit 33.1 % (36.0-47.0) Mean Corpuscular Volume 86 fL (79-100) Mean Corpuscular Hemoglobin 30 pg (25-35) Mean Corpuscular Hemoglobin Concent 34 g/dL (31-37) Red Cell Distribution Width 13.2 % (11.5-14.5) Platelet Count 325 x10^3/uL (140-400) Neutrophils (%) (Auto) 65 % (31-73) Lymphocytes (%) (Auto) 23 % (24-48) Monocytes (%) (Auto) 11 % (0-9) Eosinophils (%) (Auto) 0 % (0-3) Basophils (%) (Auto) 1 % (0-3) Neutrophils # (Auto) 2.9 x10^3/uL (1.8-7.7) Lymphocytes # (Auto) 1.0 x10^3/uL (1.0-4.8) Monocytes # (Auto) 0.5 x10^3/uL (0.0-1.1) Eosinophils # (Auto) 0.0 x10^3/uL (0.0-0.7) Basophils # (Auto) 0.0 x10^3/uL (0.0-0.2) Prothrombin Time 13.0 SEC (11.7-14.0) Prothromb Time International Ratio 1.0 (0.8-1.1) Activated Partial Thromboplast Time 28 SEC (24-38) Urine Collection Type U cath Urine Color Yellow Urine Clarity Clear Urine pH 6.5 (<5.0-8.0) Urine Specific [place] 1.010 (1.000-1.030) Urine Protein Negative mg/dL (NEG-TRACE) Urine Glucose (UA) Negative mg/dL (NEG) Urine Ketones (Stick) 15 mg/dL (NEG) Urine Blood Negative (NEG) Urine Nitrite Negative (NEG) Urine Bilirubin Negative (NEG) Urine Urobilinogen Dipstick 1.0 mg/dL (0.2 mg/dL) Urine Leukocyte Esterase Small (NEG) Urine RBC 0 /HPF (0-2) Urine WBC 11-20 /HPF (0-4) Urine Squamous Epithelial Cells Few /LPF Urine Transitional Epithelial Cells Few /LPF Urine Bacteria Moderate /HPF (0-FEW) Urine Mucus Mod /LPF Sodium Level 129 mmol/L (136-145) Potassium Level 4.2 mmol/L (3.5-5.1) Chloride Level 95 mmol/L (98-107) Carbon Dioxide Level 25 mmol/L (21-32) Anion Gap 9 (6-14) Blood Urea Nitrogen 12 mg/dL (7-20) Creatinine 0.7 mg/dL (0.6-1.0) Estimated GFR (Cockcroft-Gault) 102.3 BUN/Creatinine Ratio 17 (6-20) Glucose Level 86 mg/dL (70-99) Calcium Level 8.7 mg/dL (8.5-10.1) Ferritin 106 ng/mL (8-252) Total Bilirubin 0.1 mg/dL (0.2-1.0) Aspartate Amino Transf (AST/SGOT) 16 U/L (15-37) Alanine Aminotransferase (ALT/SGPT) 21 U/L (14-59) Alkaline Phosphatase 83 U/L (46-116) Troponin I Quantitative < 0.017 ng/mL (0.000-0.055) Total Protein 6.3 g/dL (6.4-8.2) Albumin 3.0 g/dL (3.4-5.0) Albumin/Globulin Ratio 0.9 (1.0-1.7) Vitamin B12 Level 547 pg/mL (247-911) Glucose (Fingerstick) 77 mg/dL (70-99) 58 mg/dL (70-99) 79 mg/dL (70-99) Test 05/15/20 05:31 05/15/20 06:32 05/15/20 08:50 Glucose (Fingerstick) 64 mg/dL (70-99) 155 mg/dL (70-99) White Blood Count 2.9 x10^3/uL (4.0-11.0) Red Blood Count 3.34 x10^6/uL (3.50-5.40) Hemoglobin 9.9 g/dL (12.0-15.5) Hematocrit 29.0 % (36.0-47.0) Mean Corpuscular Volume 87 fL (79-100) Mean Corpuscular Hemoglobin 30 pg (25-35) Mean Corpuscular Hemoglobin Concent 34 g/dL (31-37) Red Cell Distribution Width 12.8 % (11.5-14.5) Platelet Count 274 x10^3/uL (140-400) Neutrophils (%) (Auto) 62 % (31-73) Lymphocytes (%) (Auto) 24 % (24-48) Monocytes (%) (Auto) 13 % (0-9) Eosinophils (%) (Auto) 0 % (0-3) Basophils (%) (Auto) 1 % (0-3) Neutrophils # (Auto) 1.8 x10^3/uL (1.8-7.7) Lymphocytes # (Auto) 0.7 x10^3/uL (1.0-4.8) Monocytes # (Auto) 0.4 x10^3/uL (0.0-1.1) Eosinophils # (Auto) 0.0 x10^3/uL (0.0-0.7) Basophils # (Auto) 0.0 x10^3/uL (0.0-0.2) Sodium Level 134 mmol/L (136-145) Potassium Level 3.8 mmol/L (3.5-5.1) Chloride Level 102 mmol/L (98-107) Carbon Dioxide Level 25 mmol/L (21-32) Anion Gap 7 (6-14) Blood Urea Nitrogen 8 mg/dL (7-20) Creatinine 0.6 mg/dL (0.6-1.0) Estimated GFR (Cockcroft-Gault) 122.2 Glucose Level 86 mg/dL (70-99) Calcium Level 8.0 mg/dL (8.5-10.1) Phosphorus Level 2.6 mg/dL (2.6-4.7) Magnesium Level 1.9 mg/dL (1.8-2.4) Assessment and Plan Assessmemt and Plan Problems Medical Problems: (1) Altered mental status Status: Acute (2) UTI (urinary tract infection) Status: Acute Comment Review of Relevant I have reviewed the following items anthony (where applicable) has been applied. Medications: Current Medications Medications (Trade) Dose Ordered Sig/Chidi Route PRN Reason Start Time Stop Time Status Last Admin Dose Admin Sodium Chloride 1,000 ml @ 1,000 mls/hr 1X ONCE IV 05/14/20 14:00 05/14/20 14:59 DC 05/14/20 14:40 Ceftriaxone Sodium (Rocephin) 1 gm 1X ONCE IVP 05/14/20 14:00 05/14/20 14:10 DC 05/14/20 14:40 Ondansetron HCl (Zofran) 4 mg PRN Q8HRS PRN IV NAUSEA/VOMITING 05/14/20 14:15 05/14/20 18:25 DC 05/14/20 14:40 Sodium Chloride 1,000 ml @ 100 mls/hr Q10H IV 05/14/20 14:02 05/15/20 14:01 05/15/20 00:04 Aspirin (Ecotrin) 81 mg DAILYWBKFT PO 05/15/20 08:00 05/15/20 08:29 Dextrose (Dextrose 50%-Water Syringe) 12.5 gm PRN Q15MIN PRN IV SEE COMMENTS 05/14/20 18:30 05/15/20 06:18 Enoxaparin Sodium (Lovenox 40mg Syringe) 40 mg Q24H SQ 05/14/20 20:00 05/14/20 20:53 Pantoprazole Sodium (PROTONIX VIAL for IV PUSH) 40 mg DAILYAC IVP 05/15/20 07:30 05/15/20 06:21 Justifications for Admission Other Justification SHEA SANTIAGO MD May 15, 2020 11:27
[2020-05-15] MEDS ORDERED: cefTRIAXone IV Push 1 GM VIAL. IVP SCH (14:00)
[2020-05-15 15:05] VITALS: BP 104/58
[2020-05-15 19:20] VITALS: BP 116/71
--- NOTE | 2020-05-15 20:18 | PDOC1 ---
History & Psych Evaluation Date of Service: DOS: DATE: 05/15/20 TIME: 20:04 Source: Source: Caregiver, Chart review, Patient Identification: Identification 64-year-old female with schizoaffective disorder admitted with altered mental status Chief Complaint: Chief Complaint Altered mental status, schizoaffective History of Present Illness: HPI: She is a 64-year-old -[place] female with a history of schizoaffective disorder, CVA, recent PEG tube placement admitted with altered mental status. She was found to have possible ileus. Patient reportedly confused and nonverbal. Discussed with nursing staff. Reportedly patient remained nonverbal through the day minimally interactive. When seen, she was found to have staring spells, responded with gestures but no meaningful information or psychological exploration was possible due to patient's nonverbal status. Baseline status is not known. Previous history of schizoaffective disorder, communication deficit and impulse control disorder. Resident of a skilled nursing facility. Past Psychiatric History: History of schizoaffective disorder. Other history is not available due to patient factor. Past Medical History: Constipation IVS Hypertension Schizoaffective disorder Family History: Not available due to patient factor Social History: Social History: Resident of a skilled nursing. Current Medications: Current Medications Current Medications Medications (Trade) Dose Ordered Sig/Chidi Start Time Stop Time Status Last Admin Dose Admin Acetaminophen (Tylenol) 650 mg PRN Q4HRS PRN 05/14/20 18:30 Aspirin (Ecotrin) 81 mg DAILYWBKFT 05/15/20 08:00 05/15/20 08:29 81 MG Ceftriaxone Sodium (Rocephin) 1 gm Q24H 05/15/20 14:00 05/15/20 13:57 1 GM Dextrose (Dextrose 50%-Water Syringe) 12.5 gm PRN Q15MIN PRN 05/14/20 18:30 05/15/20 06:18 12.5 GM Docusate Sodium (Colace) 100 mg PRN DAILY PRN 05/14/20 18:30 Enoxaparin Sodium (Lovenox 40mg Syringe) 40 mg Q24H 05/14/20 20:00 05/14/20 20:53 40 MG Info (Non-Icu Electrolyte Protocol) 1 ea CONT PRN PRN 05/14/20 18:30 Magnesium Oxide (Magnesium Oxide) 400 mg BID 05/14/20 21:00 05/16/20 09:01 UNV Magnesium Sulfate 50 ml @ 25 mls/hr Q24H 05/14/20 18:30 05/16/20 20:29 UNV Ondansetron HCl (Zofran) 4 mg PRN Q6HRS PRN 05/14/20 18:30 Pantoprazole Sodium (PROTONIX VIAL for IV PUSH) 40 mg DAILYAC 05/15/20 07:30 05/15/20 06:21 40 MG Potassium Chloride/Water 100 ml @ 100 mls/hr Q1H PRN 05/14/20 18:30 UNV Potassium Chloride (Klor-Con) 40 meq 1X PRN 05/14/20 18:30 UNV Sennosides (Senna) 17.2 mg PRN BID PRN 05/14/20 18:30 Sodium Chloride 1,000 ml @ 100 mls/hr Q10H 05/14/20 14:02 05/15/20 14:01 DC 05/15/20 13:57 100 MLS/HR Allergies: Allergies: Coded Allergies: diphenhydramine (Verified Allergy, Intermediate, 04/11/17) Mental Status Examination: Mental Status Examination female appears older than his stated age Not cooperative Nonverbal Disoriented Thought process disorganized Insight poor Impulse control poor Judgment poor attention span and concentration poor Recent and remote memory impaired ROS: CONSTITUTIONAL: No fever or chills EYES: No recent changes SKIN: No rash or itching CARDIOVASCULAR: No chest pain, syncope, palpitations, or edema RESPIRATORY: No SOB or cough GASTROINTESTINAL: No nausea, vomiting or abdominal pain NEUROLOGICAL: No headaches or weakness ENDOCRINE: No cold or heat intolerance GENITOURINARY: No urgency or frequency of urination MUSCULOSKELETAL: No back pain or joint pain LYMPHATICS: No enlarged lymph nodes PSYCHIATRIC: No anxiety or depression Physical Exam: Refer to Physician's note. PAINTINGS RESTORER: No focal deficit MSK: No EPS, TDK, or abnormal involuntary movements Vitals: Vitals Vital Signs Date Time Temp Pulse Resp B/P (MAP) Pulse Ox O2 Delivery O2 Flow Rate FiO2 05/15/20 15:05 97.8 97 19 104/58 (73) 98 Room Air 97.8 Labs: Labs Laboratory Tests Test 05/14/20 12:50 05/14/20 20:52 05/14/20 23:45 05/15/20 00:18 White Blood Count 4.4 x10^3/uL (4.0-11.0) Red Blood Count 3.85 x10^6/uL (3.50-5.40) Hemoglobin 11.4 g/dL (12.0-15.5) Hematocrit 33.1 % (36.0-47.0) Mean Corpuscular Volume 86 fL (79-100) Mean Corpuscular Hemoglobin 30 pg (25-35) Mean Corpuscular Hemoglobin Concent 34 g/dL (31-37) Red Cell Distribution Width 13.2 % (11.5-14.5) Platelet Count 325 x10^3/uL (140-400) Neutrophils (%) (Auto) 65 % (31-73) Lymphocytes (%) (Auto) 23 % (24-48) Monocytes (%) (Auto) 11 % (0-9) Eosinophils (%) (Auto) 0 % (0-3) Basophils (%) (Auto) 1 % (0-3) Neutrophils # (Auto) 2.9 x10^3/uL (1.8-7.7) Lymphocytes # (Auto) 1.0 x10^3/uL (1.0-4.8) Monocytes # (Auto) 0.5 x10^3/uL (0.0-1.1) Eosinophils # (Auto) 0.0 x10^3/uL (0.0-0.7) Basophils # (Auto) 0.0 x10^3/uL (0.0-0.2) Prothrombin Time 13.0 SEC (11.7-14.0) Prothromb Time International Ratio 1.0 (0.8-1.1) Activated Partial Thromboplast Time 28 SEC (24-38) Urine Collection Type U cath Urine Color Yellow Urine Clarity Clear Urine pH 6.5 (<5.0-8.0) Urine Specific [place] 1.010 (1.000-1.030) Urine Protein Negative mg/dL (NEG-TRACE) Urine Glucose (UA) Negative mg/dL (NEG) Urine Ketones (Stick) 15 mg/dL (NEG) Urine Blood Negative (NEG) Urine Nitrite Negative (NEG) Urine Bilirubin Negative (NEG) Urine Urobilinogen Dipstick 1.0 mg/dL (0.2 mg/dL) Urine Leukocyte Esterase Small (NEG) Urine RBC 0 /HPF (0-2) Urine WBC 11-20 /HPF (0-4) Urine Squamous Epithelial Cells Few /LPF Urine Transitional Epithelial Cells Few /LPF Urine Bacteria Moderate /HPF (0-FEW) Urine Mucus Mod /LPF Sodium Level 129 mmol/L (136-145) Potassium Level 4.2 mmol/L (3.5-5.1) Chloride Level 95 mmol/L (98-107) Carbon Dioxide Level 25 mmol/L (21-32) Anion Gap 9 (6-14) Blood Urea Nitrogen 12 mg/dL (7-20) Creatinine 0.7 mg/dL (0.6-1.0) Estimated GFR (Cockcroft-Gault) 102.3 BUN/Creatinine Ratio 17 (6-20) Glucose Level 86 mg/dL (70-99) Calcium Level 8.7 mg/dL (8.5-10.1) Ferritin 106 ng/mL (8-252) Total Bilirubin 0.1 mg/dL (0.2-1.0) Aspartate Amino Transf (AST/SGOT) 16 U/L (15-37) Alanine Aminotransferase (ALT/SGPT) 21 U/L (14-59) Alkaline Phosphatase 83 U/L (46-116) Troponin I Quantitative < 0.017 ng/mL (0.000-0.055) Total Protein 6.3 g/dL (6.4-8.2) Albumin 3.0 g/dL (3.4-5.0) Albumin/Globulin Ratio 0.9 (1.0-1.7) Vitamin B12 Level 547 pg/mL (247-911) Glucose (Fingerstick) 77 mg/dL (70-99) 58 mg/dL (70-99) 79 mg/dL (70-99) Test 05/15/20 05:31 05/15/20 06:32 05/15/20 08:50 05/15/20 11:55 Glucose (Fingerstick) 64 mg/dL (70-99) 155 mg/dL (70-99) 81 mg/dL (70-99) White Blood Count 2.9 x10^3/uL (4.0-11.0) Red Blood Count 3.34 x10^6/uL (3.50-5.40) Hemoglobin 9.9 g/dL (12.0-15.5) Hematocrit 29.0 % (36.0-47.0) Mean Corpuscular Volume 87 fL (79-100) Mean Corpuscular Hemoglobin 30 pg (25-35) Mean Corpuscular Hemoglobin Concent 34 g/dL (31-37) Red Cell Distribution Width 12.8 % (11.5-14.5) Platelet Count 274 x10^3/uL (140-400) Neutrophils (%) (Auto) 62 % (31-73) Lymphocytes (%) (Auto) 24 % (24-48) Monocytes (%) (Auto) 13 % (0-9) Eosinophils (%) (Auto) 0 % (0-3) Basophils (%) (Auto) 1 % (0-3) Neutrophils # (Auto) 1.8 x10^3/uL (1.8-7.7) Lymphocytes # (Auto) 0.7 x10^3/uL (1.0-4.8) Monocytes # (Auto) 0.4 x10^3/uL (0.0-1.1) Eosinophils # (Auto) 0.0 x10^3/uL (0.0-0.7) Basophils # (Auto) 0.0 x10^3/uL (0.0-0.2) Sodium Level 134 mmol/L (136-145) Potassium Level 3.8 mmol/L (3.5-5.1) Chloride Level 102 mmol/L (98-107) Carbon Dioxide Level 25 mmol/L (21-32) Anion Gap 7 (6-14) Blood Urea Nitrogen 8 mg/dL (7-20) Creatinine 0.6 mg/dL (0.6-1.0) Estimated GFR (Cockcroft-Gault) 122.2 Glucose Level 86 mg/dL (70-99) Calcium Level 8.0 mg/dL (8.5-10.1) Phosphorus Level 2.6 mg/dL (2.6-4.7) Magnesium Level 1.9 mg/dL (1.8-2.4) Test 05/15/20 18:25 Glucose (Fingerstick) 68 mg/dL (70-99) Laboratory Tests Test 05/14/20 20:52 05/14/20 23:45 9/11/20 00:18 05/15/20 05:31 Glucose (Fingerstick) 77 mg/dL (70-99) 58 mg/dL (70-99) 79 mg/dL (70-99) 64 mg/dL (70-99) Test 05/15/20 06:32 05/15/20 08:50 05/15/20 11:55 05/15/20 18:25 Glucose (Fingerstick) 155 mg/dL (70-99) 81 mg/dL (70-99) 68 mg/dL (70-99) White Blood Count 2.9 x10^3/uL (4.0-11.0) Red Blood Count 3.34 x10^6/uL (3.50-5.40) Hemoglobin 9.9 g/dL (12.0-15.5) Hematocrit 29.0 % (36.0-47.0) Mean Corpuscular Volume 87 fL (79-100) Mean Corpuscular Hemoglobin 30 pg (25-35) Mean Corpuscular Hemoglobin Concent 34 g/dL (31-37) Red Cell Distribution Width 12.8 % (11.5-14.5) Platelet Count 274 x10^3/uL (140-400) Neutrophils (%) (Auto) 62 % (31-73) Lymphocytes (%) (Auto) 24 % (24-48) Monocytes (%) (Auto) 13 % (0-9) Eosinophils (%) (Auto) 0 % (0-3) Basophils (%) (Auto) 1 % (0-3) Neutrophils # (Auto) 1.8 x10^3/uL (1.8-7.7) Lymphocytes # (Auto) 0.7 x10^3/uL (1.0-4.8) Monocytes # (Auto) 0.4 x10^3/uL (0.0-1.1) Eosinophils # (Auto) 0.0 x10^3/uL (0.0-0.7) Basophils # (Auto) 0.0 x10^3/uL (0.0-0.2) Sodium Level 134 mmol/L (136-145) Potassium Level 3.8 mmol/L (3.5-5.1) Chloride Level 102 mmol/L (98-107) Carbon Dioxide Level 25 mmol/L (21-32) Anion Gap 7 (6-14) Blood Urea Nitrogen 8 mg/dL (7-20) Creatinine 0.6 mg/dL (0.6-1.0) Estimated GFR (Cockcroft-Gault) 122.2 Glucose Level 86 mg/dL (70-99) Calcium Level 8.0 mg/dL (8.5-10.1) Phosphorus Level 2.6 mg/dL (2.6-4.7) Magnesium Level 1.9 mg/dL (1.8-2.4) Diagnosis: Diagnosis: Schizoaffective disorder Acute delirium, likely hypoactive type Assessment: 64-year-old female with history of schizoaffective disorder admitted with altered mental status. She is nonverbal, difficult for psychological exploration. Baseline status of her psychosis and mentation is not known. She has previous history of CVA. She is on Haldol Decanoate and Haldol oral. Which can be continued at skilled nursing. Plan: Continue psychotropics as is. In case of agitation, Haldol 5 mg per oral can be given with 1 mg of Ativan every 6 hours. Collateral information would help to determine baseline status and changes. Monitor for altered mental status. Avoid sedatives and hypnotics. Thank you for involving inpatient care CHRISTOPHER GARCÍA MD May 15, 2020 20:17
[2020-05-15 23:10] VITALS: BP 109/65
[2020-05-15] MEDS: ENOXAPARIN 40 MG/0.4 ML SYRINGE. SQ SCH (23:15)
[2020-05-16 03:39] VITALS: BP 118/66
[2020-05-16] MEDS: PANTOPRAZOLE IV PUSH 40 MG VIAL. IVP SCH (06:10)
[2020-05-16 07:00] VITALS: BP 127/76
[2020-05-16] MEDS: ASPIRIN ENTERIC COATED 81 MG TABLET.DR. PO SCH (08:04)
[2020-05-16 09:56] LABS: BASO % 1 % (0-3); EOS % 1 % (0-3); HEMATOCRIT 30.8 % (36.0-47.0); HEMOGLOBIN 10.1 g/dL (12.0-15.5); LYMPH # 0.9 x10^3/uL (1.0-4.8); LYMPH % 22 % (24-48); MEAN CORPUSCULAR HEMOGLOBIN 29 pg (25-35); MEAN CORPUSCULAR HGB CONC 33 g/dL (31-37); MEAN CORPUSCULAR VOLUME 86 fL (79-100); MONO # 0.3 x10^3/uL (0.0-1.1); MONO % 9 % (0-9); NEUT # 2.6 x10^3/uL (1.8-7.7); NEUT % 68 % (31-73); PLATELET COUNT 300 x10^3/uL (140-400); RED BLOOD COUNT 3.56 x10^6/uL (3.50-5.40); WHITE BLOOD COUNT 3.8 x10^3/uL (4.0-11.0)
[2020-05-16 10:09] LABS: CALCIUM 7.9 mg/dL (8.5-10.1); CREATININE 0.6 mg/dL (0.6-1.0); GFR 122.2; MAGNESIUM 1.8 mg/dL (1.8-2.4); POTASSIUM 3.2 mmol/L (3.5-5.1)
[2020-05-16 11:00] VITALS: BP 112/46
--- NOTE | 2020-05-16 11:39 | DISCH ---
DISCHARGE INSTRUCTIONS Condition on Discharge Condition on Discharge: Guarded Activity After Discharge Activity Instructions for Disc: Bedrest today Weight Bearing Status after Di: As tolerated Diet after Discharge Liquid Texture: NPO Checks after Discharge DC Comment: Patient will need to complete 7-day course of Levaquin for her KlebsiellUTI Follow-Up Follow up with: PCP within 1 week of discharge Follow Up With: CBC and BMP within 2 weeks SHEA FALLON MD May 16, 2020 11:39
[2020-05-16] MEDS ORDERED: FAMO40TA57 PEG (11:42)
[2020-05-16] MEDS ORDERED: HALO5TAB PO (11:42)
[2020-05-16] MEDS ORDERED: LORA-434 PO (11:42)
[2020-05-16] MEDS ORDERED: LEVO750T5 PEG (11:42)
--- NOTE | 2020-05-16 11:44 | SNU/HH DC ---
DISCHARGE ORDERS DISCHARGE INFORMATION: DISCHARGE DATE: May 16, 2020 FINAL DIAGNOSIS Problems Medical Problems: (1) Altered mental status Status: Acute (2) UTI (urinary tract infection) Status: Acute CONDITION ON DISCHARGE: Stable CODE STATUS: Code Status: Full LONG-TERM: SNF STAY <30 DAYS: Yes HOSPICE: HOSPICE: Yes HOSPICE EVAL & TREAT: Yes LTAC: ADMIT TO LTAC: Yes POST DISCHARGE ORDERS: ACTIVITY ORDERS: Bedrest today WEIGHT BEARING STATUS: As tolerated DIET AFTER DISCHARGE: Cardiac FOLLOW-UP: PHYSICIAN FOLLOW-UP: PCP within 1 week of discharge LAB ORDERS FOR FOLLOW-UP: CBC and BMP within 2 weeks Additional Instructions: Will need to complete 7 days course of Levaquin TREATMENT/EQUIPMENT ORDERS: Physical Therapy For: Evalulation/Treatment Occupational Therapy For: Evaluation/Treatment Speech Language Pathology For: Evaluation/Treatment DISCHARGE MEDICATIONS: Home Meds Active Scripts Famotidine (PEPCID) 40 Mg Tablet, 40 MG PEG HS for gerd for 30 Days, #30 TAB Prov:SHEA FALLON MD 05/16/20 Lorazepam (ATIVAN) 1 Mg Tablet, 1 MG PO PRN Q6HRS PRN for ANXIETY / AGITATION for 30 Days, #90 TAB Prov:SHEA FALLON MD 05/16/20 Haloperidol (HALOPERIDOL) 5 Mg Tablet, 5 MG PO Q6HRS PRN for AGITATION for 30 Days, #120 TAB Prov:SHEA FALLON MD 05/16/20 Levofloxacin (LEVOFLOXACIN) 750 Mg Tablet, 750 MG PEG DAILY06 for uti for 7 Days, #7 TAB Prov:SHEA FALLON MD 05/16/20 Reported Medications Valproate Sodium (VALPROIC ACID) 250 Mg/5 Ml Solution, 750 MG PO HS for schizophrenia, MISC 05/14/20 Levothyroxine Sodium (LEVOTHYROXINE SODIUM) 50 Mcg Tablet, 1 TAB PO DAILY for hypothyroid, #30 TAB 5 Refills 05/14/20 Aspirin (Children's Aspirin) 81 Mg Tab.chew, 1 TAB PO DAILY for unknown for 30 Days, #30 TAB 0 Refills 05/14/20 Sennosides (SENNA) 8.6 Mg Tablet, 2 TAB PO HS for Constipation, TAB 02/17/19 Ipratropium/Albuterol Sulfate (DUONEB 0.5-3(2.5) MG/3 ML) 3 Ml Ampul.neb, 3 ML NEB PRN QID PRN for SHORTNESS OF BREATH, EACH 02/17/19 Acetaminophen (TYLENOL) 325 Mg Tablet, 650 MG PO PRN Q6HRS PRN for FEVER, TAB 02/17/19 Metformin Hcl (FORTAMET ER) 500 Mg Tab.er.24, 500 MG PO DAILYWBKFT for ANTI-DIABETIC, TAB 0 Refills 04/10/17 Fluticasone Propionate (Flonase Allergy Relief) 9.9 Ml [place].susp, 2 SPRAYS NS DAILY, BOTTLE 08/20/16 Dicyclomine Hcl (BENTYL) 10 Mg Capsule, 1 CAP PO TID, #90 CAP 1 Refill 08/20/16 Losartan Potassium (LOSARTAN POTASSIUM ) 25 Mg Tablet, 25 MG PO DAILY, TAB 08/20/16 Discontinued Reported Medications Haloperidol Decanoate (HALOPERIDOL DECANOATE) 100 Mg/1 Ml Vial, 100 MG IM monthly for Antipsychotic, EACH 02/17/19 Haloperidol (HALOPERIDOL) 10 Mg Tablet, 1 TAB PO QHS for Antipsychotic, #30 TAB 2 Refills 02/17/19 Ibuprofen (IBUPROFEN) 200 Mg Tablet, 600 MG PO DAILY for Pain, TAB 02/17/19 Divalproex Sodium (DIVALPROEX SODIUM ER) 250 Mg Tab.er.24h, 750 MG PO TID for Schizoaffective disorder, TAB.SR 02/17/19 Pantoprazole Sodium (PROTONIX) 20 Mg Tablet.dr, 40 MG PO DAILY for Reflux, TAB 02/17/19 Levothyroxine Sodium (SYNTHROID) 25 Mcg Tablet, 1 TAB PO DAILY, #30 TAB 5 Refills 08/20/16 SHEA FALLON MD May 16, 2020 11:44
[2020-05-16] MEDS ORDERED: HALOPERIDOL 5 MG TABLET. PO PRN (11:45)
--- NOTE | 2020-05-19 08:00 | PDOC3 ---
[facility]-Discharge Summary Date of Admission: Date of Admission: May 14, 2020 Date of Discharge: Date of Discharge: May 16, 2020 Admission Diagnosis: Admitting Diagnosis: Acute metabolic encephalopathy NOS Acute hypodelirium or confusional state Acute UTI Status post PEG tube placement with possible ileus Schizoaffective disorder Acute electrolyte derangementshyponatremia and hypochloremia likely due to volume depletion Volume depletion Normocytic anemia due to chronic inflammatory disease Discharge Diagnosis: Discharge Diagnosis: Acute metabolic encephalopathy NOS Acute hypodelirium or confusional state Acute UTI Status post PEG tube placement with possible ileus Schizoaffective disorder Acute electrolyte derangementshyponatremia and hypochloremia likely due to volume depletion Volume depletion Normocytic anemia due to chronic inflammatory disease Consults: Consults: Psychiatry GI Hospital Course: Hospital Course: 64-year-old female with past medical history of schizoaffective disorder, recent PEG tube placement, hypertension who presents via EMS to the ED with complaints from the facility for altered mental status. Staff from alf stated that patient began to start to drool. There was also an x-ray that was done on the abdomen that showed possible ileus. Patient is unable to provide an y sort of history due to being nonverbal. Unsure if this is her baseline. Patient is unable to answer any questions and is not following any commands. Patient was admitted for further care and evalution from GI and Psychiatry. XR was performed that did not show any concerns for ileus and therefore tube feeds were continued. Psych evaluation made adjustments in her ativan and added Haldol for any agitation episodes. There were no acute psychotic episodes or acute focal neuro deficit changes during the hospital stay. She was also treated for UTI with IV ceftriaxone and then transitioned to PO levaquin for 5 days that was sensitive to Klebsiella Pneumoniae. The rest of the hospital course was uneventful. Disposition: Disposition/Orders: D/C to Home Activity: Activity: Resume previous activity Diet: Diet: NPO Medications: Home Meds Active Scripts Famotidine (PEPCID) 40 Mg Tablet, 40 MG PEG HS for gerd for 30 Days, #30 TAB Prov:SHEA FALLON MD 05/16/20 Lorazepam (ATIVAN) 1 Mg Tablet, 1 MG PO PRN Q6HRS PRN for ANXIETY / AGITATION for 30 Days, #90 TAB Prov:SHEA FALLON MD 05/16/20 Haloperidol (HALOPERIDOL) 5 Mg Tablet, 5 MG PO Q6HRS PRN for AGITATION for 30 Days, #120 TAB Prov:SHEA FALLON MD 05/16/20 Levofloxacin (LEVOFLOXACIN) 750 Mg Tablet, 750 MG PEG DAILY06 for uti for 7 Days, #7 TAB Prov:SHEA FALLON MD 05/16/20 Reported Medications Valproate Sodium (VALPROIC ACID) 250 Mg/5 Ml Solution, 750 MG PO HS for schizophrenia, MISC 05/14/20 Levothyroxine Sodium (LEVOTHYROXINE SODIUM) 50 Mcg Tablet, 1 TAB PO DAILY for hypothyroid, #30 TAB 5 Refills 05/14/20 Aspirin (Children's Aspirin) 81 Mg Tab.chew, 1 TAB PO DAILY for unknown for 30 Days, #30 TAB 0 Refills 05/14/20 Sennosides (SENNA) 8.6 Mg Tablet, 2 TAB PO HS for Constipation, TAB 02/17/19 Ipratropium/Albuterol Sulfate (DUONEB 0.5-3(2.5) MG/3 ML) 3 Ml Ampul.neb, 3 ML NEB PRN QID PRN for SHORTNESS OF BREATH, EACH 02/17/19 Acetaminophen (TYLENOL) 325 Mg Tablet, 650 MG PO PRN Q6HRS PRN for FEVER, TAB 02/17/19 Metformin Hcl (FORTAMET ER) 500 Mg Tab.er.24, 500 MG PO DAILYWBKFT for ANTI- DIABETIC, TAB 0 Refills 04/10/17 Fluticasone Propionate (Flonase Allergy Relief) 9.9 Ml [place].susp, 2 SPRAYS NS DAILY, BOTTLE 08/20/16 Dicyclomine Hcl (BENTYL) 10 Mg Capsule, 1 CAP PO TID, #90 CAP 1 Refill 08/20/16 Losartan Potassium (LOSARTAN POTASSIUM ) 25 Mg Tablet, 25 MG PO DAILY, TAB 08/20/16 Discontinued Reported Medications Haloperidol Decanoate (HALOPERIDOL DECANOATE) 100 Mg/1 Ml Vial, 100 MG IM monthly for Antipsychotic, EACH 02/17/19 Haloperidol (HALOPERIDOL) 10 Mg Tablet, 1 TAB PO QHS for Antipsychotic, #30 TAB 2 Refills 02/17/19 Ibuprofen (IBUPROFEN) 200 Mg Tablet, 600 MG PO DAILY for Pain, TAB 02/17/19 Divalproex Sodium (DIVALPROEX SODIUM ER) 250 Mg Tab.er.24h, 750 MG PO TID for Schizoaffective disorder, TAB.SR 02/17/19 Pantoprazole Sodium (PROTONIX) 20 Mg Tablet.dr, 40 MG PO DAILY for Reflux, TAB 02/17/19 Levothyroxine Sodium (SYNTHROID) 25 Mcg Tablet, 1 TAB PO DAILY, #30 TAB 5 Refills 08/20/16 Scheduled Aspirin (Children's Aspirin), 1 TAB PO DAILY, (Reported) Dicyclomine Hcl (Bentyl), 1 CAP PO TID, (Reported) Famotidine (Pepcid), 40 MG PEG HS Fluticasone Propionate (Flonase Allergy Relief), 2 SPRAYS NS DAILY, (Reported) Levofloxacin (Levofloxacin), 750 MG PEG DAILY06 Levothyroxine Sodium (Levothyroxine Sodium), 1 TAB PO DAILY, (Reported) Losartan Potassium (Losartan Potassium ), 25 MG PO DAILY, (Reported) Metformin Hcl (Fortamet Er), 500 MG PO DAILYWBKFT, (Reported) Sennosides (Senna), 2 TAB PO HS, (Reported) Valproate Sodium (Valproic Acid), 750 MG PO HS, (Reported) Scheduled PRN Acetaminophen (Tylenol), 650 MG PO PRN Q6HRS PRN for FEVER, (Reported) Haloperidol (Haloperidol), 5 MG PO Q6HRS PRN for AGITATION Ipratropium/Albuterol Sulfate (Duoneb 0.5-3(2.5) Mg/3 Ml), 3 ML NEB PRN QID PRN for SHORTNESS OF BREATH, (Reported) Lorazepam (Ativan), 1 MG PO PRN Q6HRS PRN for ANXIETY / AGITATION Discontinued Medications Divalproex Sodium (Divalproex Sodium Er), 750 MG PO TID, (Reported) Haloperidol (Haloperidol), 1 TAB PO QHS, (Reported) Haloperidol Decanoate (Haloperidol Decanoate), 100 MG IM monthly, (Reported) Ibuprofen (Ibuprofen), 600 MG PO DAILY, (Reported) Levothyroxine Sodium (Synthroid), 1 TAB PO DAILY, (Reported) Pantoprazole Sodium (Protonix), 40 MG PO DAILY, (Reported) Total Time: Total Time: Total time spent was 35 minutes in preparing scripts, discharge planning with SW and RN, and preparing this discharge summary. Brianfation of Admission Dx: Justifications for Admission: Justification of Admission Dx: Yes (AMS, UTI) SHEA FALLON MD May 19, 2020 08:00
== END 2020-05-16 16:10 | DRG 689 ==
LOC: ER 12:33 → 4 NORTH 14:00
PROVIDERS: ADMIT Internal Medicine; ATTEND Internal Medicine
DX: N39.0 Urinary tract infection, site not specified (principal); G93.41 Metabolic encephalopathy; E87.1 Hypo-osmolality and hyponatremia; D63.8 Anemia in other chronic diseases classified elsewhere; E03.9 Hypothyroidism, unspecified; E11.9 Type 2 diabetes mellitus without complications; E78.5 Hyperlipidemia, unspecified; E86.9 Volume depletion, unspecified; E87.8 Other disorders of electrolyte and fluid balance, not elsewhere classified; F25.9 Schizoaffective disorder, unspecified; F41.9 Anxiety disorder, unspecified; G47.33 Obstructive sleep apnea (adult) (pediatric); I10 Essential (primary) hypertension; K57.30 Diverticulosis of large intestine without perforation or abscess without bleeding; R41.0 Disorientation, unspecified; Z86.010 Personal history of colon polyps; Z86.73 Personal history of transient ischemic attack (TIA), and cerebral infarction without residual deficits; Z93.1 Gastrostomy status; Z90.49 Acquired absence of other specified parts of digestive tract; Z88.8 Allergy status to other drugs, medicaments and biological substances; Z20.828 Contact with and (suspected) exposure to other viral communicable diseases
CPT/HCPCS: 36415; 70450; 71045; 74018; 80048; 80053; 81001; 82607; 82728; 82962; 83735; 84100; 84484; 85025; 85610; 85730; 87077; 87086; 87186; 93005; 96361; 96374; 96375; 99285; C9113; J0696; J1650; J2405; J7030; G0378; U0003-CS

== ENCOUNTER 2020-05-25 09:06 | Emergency (ER) | payer MEDICARE, MEDICAID ==
[~2020-05-25] VITALS: Ht 152.4 cm; Wt 68.0 kg
[~2020-05-25 09:06] MED LIST changes: +ASPI81TA59 PO; +FAMO40TA57 PEG; +HALO5TAB PO; +LEVO50TA5 PO; +LEVO750T5 PEG; +LORA-434 PO; +VALP250S3 PO
[2020-05-25] MEDS ORDERED: IV NORMAL SALINE 1000ML BAG 1,000 ML IV ONE ×2 (09:30→13:45)
[2020-05-25 10:22] LABS: BASO % 0 % (0-3); EOS # 0.5 x10^3/uL (0.0-0.7); EOS % 5 % (0-3); HEMATOCRIT 35.2 % (36.0-47.0); HEMOGLOBIN 11.8 g/dL (12.0-15.5); LYMPH # 1.3 x10^3/uL (1.0-4.8); LYMPH % 13 % (24-48); MEAN CORPUSCULAR HEMOGLOBIN 29 pg (25-35); MEAN CORPUSCULAR HGB CONC 33 g/dL (31-37); MEAN CORPUSCULAR VOLUME 86 fL (79-100); MONO # 1.2 x10^3/uL (0.0-1.1); MONO % 12 % (0-9); NEUT % 69 % (31-73); PLATELET COUNT 409 x10^3/uL (140-400); RED BLOOD COUNT 4.08 x10^6/uL (3.50-5.40); RED CELL DISTRIBUTION WIDTH 13.4 % (11.5-14.5); WHITE BLOOD COUNT 10.1 x10^3/uL (4.0-11.0)
[2020-05-25 10:35] LABS: CALCIUM 9.1 mg/dL (8.5-10.1); CREATININE 0.7 mg/dL (0.6-1.0); GFR 102.3
[2020-05-25 10:49] LABS: ALBUMIN 2.7 g/dL (3.4-5.0); ALBUMIN/GLOBULIN RATIO 0.7 (1.0-1.7); MAGNESIUM 1.9 mg/dL (1.8-2.4); TOTAL BILIRUBIN 0.4 mg/dL (0.2-1.0); TOTAL PROTEIN 6.7 g/dL (6.4-8.2)
--- NOTE | 2020-05-25 10:49 | RAD ---
EXAM: CHEST AP ONLY 05/25/2020 9:58 AM CLINICAL INDICATION: Shortness of breath COMPARISON: Chest radiograph 05/14/2020 TECHNIQUE: AP portable chest radiograph FINDINGS: The heart and mediastinum are normal. Lungs are mildly hypoexpanded with probable mild right basilar atelectasis. No consolidation, pleural effusion, or pneumothorax. Pulmonary vascularity is normal. The thoracic skeleton is intact. IMPRESSION: No acute cardiopulmonary abnormality. Electronically signed by: Adry Mclaughlin MD (05/25/2020 10:46 AM) [id number]
[2020-05-25 10:58] LABS: BILIRUBIN,URINE SMALL (NEG); CLARITY,URINE CLEAR; COLOR,URINE YELLOW; NITRITE,URINE NEGATIVE (NEG); PROTEIN,URINE NEGATIVE (NEG-TRACE); UROBILINOGEN,URINE 0.2 mg/dL (0.2 mg/dL)
[2020-05-25 11:01] LABS: SQUAMOUS EPITHELIAL CELL,UR OCC /LPF
[2020-05-25 11:03] LABS: RBC,URINE OCC /HPF (0-2); WBC,URINE OCC /HPF (0-4)
[2020-05-25 11:04] LABS: BACTERIA,URINE FEW /HPF (0-FEW)
--- NOTE | 2020-05-25 12:32 | RAD ---
EXAM: CT head without contrast INDICATION: Altered mental status COMPARISON: CT head 05/14/2020 TECHNIQUE: Axial CT imaging through the head without intravenous contrast. One or more of the following individualized dose reduction techniques were utilized for this examination: 1. Automated exposure control 2. Adjustment of the mA and/or kV according to patient size 3. Use of iterative reconstruction technique. FINDINGS: The ventricles and sulci are mildly enlarged. There is mild periventricular deep white matter hypoattenuation, greatest along the frontal horn of the left lateral ventricle. Alexander-white matter differentiation is maintained. There is no intracranial hemorrhage, acute infarct, or mass lesion. Basal cisterns are clear. The skull and scalp are intact. Paranasal sinuses and right mastoid air cells are clear. Unchanged sclerosis versus surgical changes of the left mastoid air cells. Globes and orbits are intact. IMPRESSION: 1. No acute intracranial abnormality. 2. Unchanged mild volume loss and white matter disease, likely related to chronic microvascular ischemia. Electronically signed by: Adry Mclaughlin MD (05/25/2020 12:29 PM) [id number]
--- NOTE | 2020-05-25 13:11 | PHYS DOC ---
Past Medical History Past Medical History: Constipation, CVA, Diabetes-Type II, GERD, Hypertension, UTI Additional Past Medical Histor: SCHIZOAFFECTIVE DISORDER, COMMUNICATION DEFICIT, IMPULSE DISORDER, COVID 6/ Past Surgical History: Other Additional Past Surgical Histo: Unable to provide information Smoking Status: Never Smoker Alcohol Use: None Drug Use: None General Adult EDM: Chief Complaint: HYPOTENSION HPI: HPI: Patient is a 64 year old female who was sent here from [facility] due to altered mental status low blood pressure. Patient has history of CVA, she was bedbound. About 3 weeks ago she stopped eating, she has been feeding her by feeding tube. Nursing reported that they did x-ray her belly few days ago showed that she had an ileus. Today she was acting more confused, her blood pressure was low in the 80/40. So EMS were called to take her here for evaluation. There is no report of fever or cough. Patient denies any abdominal pain, no chest pain. There is no report of nausea vomiting. Review of Systems: Review of Systems: Constitutional: Denies fever or chills. [] Eyes: Denies change in visual acuity. [] HENT: Denies nasal congestion or sore throat. [] Respiratory: Denies cough or shortness of breath. [] Cardiovascular: Denies chest pain or edema. [] GI: Denies abdominal pain, nausea, vomiting, bloody stools or diarrhea. [] : Denies dysuria. [] Musculoskeletal: Denies back pain or joint pain. [] Integument: Denies rash. [] Neurologic: Positive for decreased responsiveness, denies headache, focal weakness or sensory changes. [] Endocrine: Denies polyuria or polydipsia. [] Lymphatic: Denies swollen glands. [] Psychiatric: Denies depression or anxiety. [] Heart Score: Risk Factors: Risk Factors: DM, Current or recent (<one month) smoker, HTN, HLP, family history of CAD, obesity. Risk Scores: Score 0 - 3: 2.5% MACE over next 6 weeks - Discharge Home Score 4 - 6: 20.3% MACE over next 6 weeks - Admit for Clinical Observation Score 7 - 10: 72.7% MACE over next 6 weeks - Early Invasive Strategies Current Medications: Current Medications Medications (Trade) Dose Ordered Sig/Chidi Start Time Stop Time Status Last Admin Dose Admin Sodium Chloride 1,000 ml @ 1,000 mls/hr 1X ONCE 05/25/20 09:30 05/25/20 10:29 DC 05/25/20 09:30 1,000 MLS/HR Allergies: Allergies: Allergies Coded Allergies Type Severity Reaction Last Updated Verified diphenhydramine Allergy Intermediate 04/11/17 Yes Physical Exam: PE: Constitutional: Well developed, well nourished, no acute distress, non-toxic appearance. [] HENT: Normocephalic, atraumatic, bilateral external ears normal, oropharynx IS DRIED, no oral exudates, nose normal. [] Eyes: PERRLA, EOMI, conjunctiva normal, no discharge. [] Neck: Normal range of motion, no tenderness, supple, no stridor. [] Cardiovascular: SINUS TACHYCARDIA, regular rhythm, no murmur [] Lungs & Thorax: Bilateral breath sounds clear to auscultation [] Abdomen: HYPOACTIVE BOWEL SOUND, soft, no tenderness, no masses, no pulsatile masses. [] Skin: Warm, dry, no erythema, no rash. [] Back: No tenderness, no CVA tenderness. [] Extremities: No tenderness, no cyanosis, no clubbing, ROM intact, no edema. [] Neurologic:PATIENT WAS AWAKE , ALERT, WAS ABLE TO SAY HER NAME IS SHANON.... LEFT SIDE WEAKNESS. Psychologic: Affect normal, judgement normal, mood normal. [] Current Patient Data: Labs: Laboratory Tests Test 05/25/20 10:00 05/25/20 10:25 White Blood Count 10.1 x10^3/uL (4.0-11.0) Red Blood Count 4.08 x10^6/uL (3.50-5.40) Hemoglobin 11.8 g/dL (12.0-15.5) L Hematocrit 35.2 % (36.0-47.0) L Mean Corpuscular Volume 86 fL (79-100) Mean Corpuscular Hemoglobin 29 pg (25-35) Mean Corpuscular Hemoglobin Concent 33 g/dL (31-37) Red Cell Distribution Width 13.4 % (11.5-14.5) Platelet Count 409 x10^3/uL (140-400) H Neutrophils (%) (Auto) 69 % (31-73) Lymphocytes (%) (Auto) 13 % (24-48) L Monocytes (%) (Auto) 12 % (0-9) H Eosinophils (%) (Auto) 5 % (0-3) H Basophils (%) (Auto) 0 % (0-3) Neutrophils # (Auto) 7.0 x10^3/uL (1.8-7.7) Lymphocytes # (Auto) 1.3 x10^3/uL (1.0-4.8) Monocytes # (Auto) 1.2 x10^3/uL (0.0-1.1) H Eosinophils # (Auto) 0.5 x10^3/uL (0.0-0.7) Basophils # (Auto) 0.0 x10^3/uL (0.0-0.2) Sodium Level 134 mmol/L (136-145) L Potassium Level 4.0 mmol/L (3.5-5.1) Chloride Level 99 mmol/L (98-107) Carbon Dioxide Level 25 mmol/L (21-32) Anion Gap 10 (6-14) Blood Urea Nitrogen 13 mg/dL (7-20) Creatinine 0.7 mg/dL (0.6-1.0) Estimated GFR (Cockcroft-Gault) 102.3 BUN/Creatinine Ratio 19 (6-20) Glucose Level 107 mg/dL (70-99) H Lactic Acid Level 0.7 mmol/L (0.4-2.0) Calcium Level 9.1 mg/dL (8.5-10.1) Magnesium Level 1.9 mg/dL (1.8-2.4) Total Bilirubin 0.4 mg/dL (0.2-1.0) Aspartate Amino Transferase (AST) 21 U/L (15-37) Alanine Aminotransferase (ALT) 26 U/L (14-59) Alkaline Phosphatase 80 U/L (46-116) Total Protein 6.7 g/dL (6.4-8.2) Albumin 2.7 g/dL (3.4-5.0) L Albumin/Globulin Ratio 0.7 (1.0-1.7) L Urine Collection Type U cath Urine Color Yellow Urine Clarity Clear Urine pH 6.0 (<5.0-8.0) Urine Specific [place] 1.015 (1.000-1.030) Urine Protein Negative mg/dL (NEG-TRACE) Urine Glucose (UA) Negative mg/dL (NEG) Urine Ketones (Stick) 40 mg/dL (NEG) Urine Blood Negative (NEG) Urine Nitrite Negative (NEG) Urine Bilirubin Small (NEG) Urine Urobilinogen Dipstick 0.2 mg/dL (0.2 mg/dL) Urine Leukocyte Esterase Negative (NEG) Urine RBC Occ /HPF (0-2) Urine WBC Occ /HPF (0-4) Urine Squamous Epithelial Cells Occ /LPF Urine Renal Epithelial Cells Few /LPF Urine Bacteria Few /HPF (0-FEW) Urine Mucus Marked /LPF Laboratory Tests 05/25/20 10:00 Laboratory Tests 05/25/20 10:00 Vital Signs: Vital Signs Date Time Temp Pulse Resp B/P (MAP) Pulse Ox O2 Delivery O2 Flow Rate FiO2 05/25/20 09:32 99.1 118 12 105/68 (80) 96 Room Air 99.1 EKG: EKG: EKG was done at 0936, rate of 110 bpm, SINUS TACHYCARDIA, NO STEMI[] Radiology/Procedures: Radiology/Procedures: [][facility] [address] [place] [address] IMAGING REPORT Signed PATIENT: SHANON SANCHEZ ACCOUNT: [id number] : 1955 LOCATION: ER AGE: 64 SEX: F EXAM STATUS: REG ER ORD. PHYSICIAN: DEJAH MOSELEY DO REASON: NAUSEA/VOMITING, RECENT DIAGNOSE OF ILEUS. PROCEDURE: CT ABD PELV W/ IV CONTRST ONLY CT abdomen and pelvis with contrast PQRS statement: CT scans at this facility use dose reduction including either automated exposure control, iterative reconstructions, and /or weight based radiation dosing via mA and kV modification when appropriate to reduce radiation dose to as low as reasonably achievable. HISTORY: Nausea and vomiting. Ileus. TECHNIQUE: CT imaging abdomen and pelvis with 75 mL Isovue-370 intravenous contrast. Abdomen findings: Lumbar disc osteophytes with spinal canal stenoses. There is a dependent right lower lobe consolidation. Pancreas, spleen, liver, gallbladder, kidneys and adrenal glands are unremarkable. There is a percutaneous gastrostomy with the balloon tip extending to the junction of the second and third segments of the duodenum. No small bowel obstruction. Appendix not visualized may be surgically absent. Moderate volume of stool throughout the large bowel. No abdominal fluid. There is a single enlarged left perinephric retroperitoneal lymph node measuring 1.3 cm image 41. There are some adjacent smaller nodes measuring 1 cm or less. Similar groundglass density and subcentimeter lymph nodes at the left abdominal small bowel mesentery are also present. Pelvis findings: Rectal fecal impaction with a large volume of rectal stool diameter of 7 cm. Uterus and ovaries are atrophic. Bladder and bones are unremarkable. No pelvic fluid or adenopathy. IMPRESSION: 1. Constipation and rectal fecal impaction as described above. 2. Asymmetric dependent posterior basilar right lower lobe opacity which could be asymmetric atelectasis versus pneumonia. Consider follow-up CT imaging in 3 months to document this resolves. 3. Mild retroperitoneal para-aortic adenopathy. 4. Mild groundglass density and subcentimeter lymph nodes of the left abdominal small bowel mesentery. This is most likely changes of panniculitis. Given the presence of mild retroperitoneal adenopathy, consider follow-up CT imaging in 3 months to excluded early pathologic developing adenopathy in the abdomen. 5. The percutaneous gastrostomy catheter balloon tip extends into the duodenum at the junction of the second and third segments of the duodenum. 6. Other incidental findings as described above. Electronically signed by: Alex Miranda MD (05/25/2020 4:41 PM) [facility] [place] DICTATED and SIGNED BY: ALEX MIRANDA MD DATE: 05/25/20 1641 [facility] [address] [place], [place] [id number] IMAGING REPORT Signed PATIENT: SHANON SANCHEZ ACCOUNT: [id number] : 1955 LOCATION: ER AGE: 64 SEX: F EXAM STATUS: REG ER ORD. PHYSICIAN: DEJAH MOSELEY DO REASON: ams PROCEDURE: CT HEAD WO CONTRAST EXAM: CT head without contrast INDICATION: Altered mental status COMPARISON: CT head 05/14/2020 TECHNIQUE: Axial CT imaging through the head without intravenous contrast. One or more of the following individualized dose reduction techniques were utilized for this examination: 1. Automated exposure control 2. Adjustment of the mA and/or kV according to patient size 3. Use of iterative reconstruction technique. FINDINGS: The ventricles and sulci are mildly enlarged. There is mild periventricular deep white matter hypoattenuation, greatest along the frontal horn of the left lateral ventricle. Alexander-white matter differentiation is maintained. There is no intracranial hemorrhage, acute infarct, or mass lesion. Basal cisterns are clear. The skull and scalp are intact. Paranasal sinuses and right mastoid air cells are clear. Unchanged sclerosis versus surgical changes of the left mastoid air cells. Globes and orbits are intact. IMPRESSION: 1. No acute intracranial abnormality. 2. Unchanged mild volume loss and white matter disease, likely related to chronic microvascular ischemia. Electronically signed by: Adry Mclaughlin MD (05/25/2020 12:29 PM) [id number] DICTATED and SIGNED BY: ADRY MCLAUGHLIN MD DATE: 05/25/20 1229 Course & Med Decision Making: Course & Med Decision Making Pertinent Labs and Imaging studies reviewed. (See chart for details) Patient is a 64-year-old female who was found to be dehydrated, patient was given IV fluid in ER, her blood pressure was normalized. CT scan her abdomen pelvic show constipation with fecal impaction. Patient did not have any nausea vomiting in the ER, there is no evidence of fever,, no evidence of infection.. Patient will be discharged back to [facility] with stool softeners and Fleet enema. Dragon Disclaimer: Dragon Disclaimer: This electronic medical record was generated, in whole or in part, using a voice recognition dictation system. Departure Departure Impression: Primary Impression: Dehydration Additional Impressions: Altered mental status Constipation Disposition: 01 HOME, SELF-CARE (BACK TO LONG TERM) Condition: IMPROVED Referrals: STEFAN WALTON MD (PCP) PLEASE FOLLOW UP WITH YOUR FAMILY DOCTOR THIS WEEK. Patient Instructions: Altered Mental Status, Constipation, Adult, Dehydration, Adult Additional Instructions: Thank you for visiting our Emergency Department. We appreciate you trusting us with your care. If any additional problems come up don't hesitate to return to visit us. Please follow up with your primary care provider so they can plan additional care if needed and know about the problem that you had. If symptoms worsen come back to the Emergency Department. Any concerning symptoms that start such as chest pain, shortness of air, weakness or numbness on one side of the body, running high fevers or any other concerning symptoms return to the ER. Scripts Na Phos,M-B/Na Phos,Di-Ba (FLEET ENEMA) 133 Ml Enema 1 EACH RC ONCE PRN for CONSTIPATION, #1 BOTTLE Prov: DEJAH MOSELEY DO 05/25/20 Bisacodyl (DULCOLAX) 10 Mg Supp.rect 1 SUPP RC DAILY for constipation for 10 Days, #10 SUPP 0 Refills Prov: DEJAH MOSELEY DO 05/25/20 Justicifation of Admission Dx: Justifications for Admission: Justification of Admission Dx: N/A DEJAH MOSELEY DO May 25, 2020 13:11
[2020-05-25] MEDS ORDERED: IOHEXOL 300 MG/ML 100ML VIAL. IV ONE (15:30)
[2020-05-25] MEDS ORDERED: CONTRAST GIVEN. MC PRN (15:30)
--- NOTE | 2020-05-25 16:44 | RAD ---
CT abdomen and pelvis with contrast PQRS statement: CT scans at this facility use dose reduction including either automated exposure control, iterative reconstructions, and /or weight based radiation dosing via mA and kV modification when appropriate to reduce radiation dose to as low as reasonably achievable. HISTORY: Nausea and vomiting. Ileus. TECHNIQUE: CT imaging abdomen and pelvis with 75 mL Isovue-370 intravenous contrast. Abdomen findings: Lumbar disc osteophytes with spinal canal stenoses. There is a dependent right lower lobe consolidation. Pancreas, spleen, liver, gallbladder, kidneys and adrenal glands are unremarkable. There is a percutaneous gastrostomy with the balloon tip extending to the junction of the second and third segments of the duodenum. No small bowel obstruction. Appendix not visualized may be surgically absent. Moderate volume of stool throughout the large bowel. No abdominal fluid. There is a single enlarged left perinephric retroperitoneal lymph node measuring 1.3 cm image 41. There are some adjacent smaller nodes measuring 1 cm or less. Similar groundglass density and subcentimeter lymph nodes at the left abdominal small bowel mesentery are also present. Pelvis findings: Rectal fecal impaction with a large volume of rectal stool diameter of 7 cm. Uterus and ovaries are atrophic. Bladder and bones are unremarkable. No pelvic fluid or adenopathy. IMPRESSION: 1. Constipation and rectal fecal impaction as described above. 2. Asymmetric dependent posterior basilar right lower lobe opacity which could be asymmetric atelectasis versus pneumonia. Consider follow-up CT imaging in 3 months to document this resolves. 3. Mild retroperitoneal para-aortic adenopathy. 4. Mild groundglass density and subcentimeter lymph nodes of the left abdominal small bowel mesentery. This is most likely changes of panniculitis. Given the presence of mild retroperitoneal adenopathy, consider follow-up CT imaging in 3 months to excluded early pathologic developing adenopathy in the abdomen. 5. The percutaneous gastrostomy catheter balloon tip extends into the duodenum at the junction of the second and third segments of the duodenum. 6. Other incidental findings as described above. Electronically signed by: Toro Miranda MD (05/25/2020 4:41 PM) [facility]
[2020-05-25] MEDS ORDERED: BISA10SU55 RC ×2 (17:02→17:30)
[2020-05-25] MEDS ORDERED: NA P133E2 RC ×2 (17:02→17:30)
[2020-05-25 17:11] VITALS: BP 124/72
[2020-05-25] MEDS ORDERED: BISACODYL 10 MG SUPP.RECT. PR ONE (17:30)
== END 2020-05-25 17:38 | disposition home or self-care (01) ==
LOC: ER 09:06
DX: E86.0 Dehydration (principal); R41.82 Altered mental status, unspecified; K59.00 Constipation, unspecified; E11.9 Type 2 diabetes mellitus without complications; K21.9 Gastro-esophageal reflux disease without esophagitis; I10 Essential (primary) hypertension; F25.9 Schizoaffective disorder, unspecified; R00.0 Tachycardia, unspecified; Z86.73 Personal history of transient ischemic attack (TIA), and cerebral infarction without residual deficits; Z87.440 Personal history of urinary (tract) infections; Z88.5 Allergy status to narcotic agent
CPT/HCPCS: 36415; 70450; 71045; 74177; 80053; 81001; 83605; 83735; 84484; 85025; 93005; 96360; 96361; 99285; J7030; Q9967